=== PATIENT | female | born 1955 | race Asian ===

== ENCOUNTER 2016-06-20 10:44 | Inpatient (IN) | payer MEDICAID ==
[~2016-06-20] VITALS: Ht 152.4 cm; Wt 55.9 kg
[~2016-06-20 10:44] MED LIST: ACETAMINOP160 MG/54 ORAL; ASPIRIN81 MG ORAL; ATORVASTATIN CA20 MG ORAL; CALCIUM 500 +1 EAC6 PO; CARVEDILOL6.25 MG ORAL; COLACE100 MG ORAL; DULCOLAX10 MG RC; FUROSEMIDE40 MG ORAL; LISINOPRIL5 MG ORAL; NAMENDA10 MG ORAL; SENNA LAXATIVE1 EAC1 PO; SEROQUEL25 MG ORAL; SPIRONOLACTONE25 MG ORAL; VITAMIN B-1100 MG ORAL
--- NOTE | 2016-06-20 10:52 | Emergency Room Report ---
History of Present Illness General Chief Complaint: Abdominal Pain Source: Medical Record Present Illness HPI Patient sent in from nursing facility with reports of shortness of breath and increased Abdominal distention Patient has history of liver disease with ascites Patient herself is somewhat of a poor historian History of present illness remains limited No reports of vomiting or diarrhea Unclear when the patient's last paracentesis was Allergies: Coded Allergies: No Known Allergies (Unverified , 01/02/16) Patient History Past Medical History: see triage record Pertinent Family History: none Reviewed Nursing Documentation: PMH: Agreed, PSxH: Agreed Nursing Documentation-PMH Hx Cardiac Problems: Yes Hx Hypertension: Yes Hx Pacemaker: No Hx Asthma: No Hx COPD: No Hx Diabetes: No Hx Cancer: No Hx Gastrointestinal Problems: Yes - acities Hx Dialysis: No History Of Psychiatric Problem: Yes Hx Neurological Problems: Yes - encephalopathy Hx Cerebrovascular Accident: No Hx Seizures: No Review of Systems All Other Systems: negative except mentioned in HPI Physical Exam Vital Signs Date Time Temp Pulse Resp B/P Pulse Ox O2 Delivery O2 Flow Rate FiO2 06/20/16 10:35 92 16 147/107 98 Room Air Sp02 EP Interpretation: reviewed, normal General Appearance: mild distress - Uncomfortable Head: normocephalic, atraumatic Eyes: bilateral eye EOMI, bilateral eye PERRL ENT: hearing grossly normal, normal pharynx, TMs + canals normal, uvula midline Neck: full range of motion, supple, no meningismus, no bony tend Respiratory: lungs clear, normal breath sounds, no rhonchi, no respiratory distress, no retraction, no accessory muscle use Cardiovascular #1: normal peripheral pulses, regular rate, rhythm, no gallop, no JVD, no murmur Gastrointestinal: no guarding, no hernia, no pulsatile mass, no rebound, other - Hepatomegaly with positive fluid shift, in line with ascites , Genitourinary: no CVA tenderness Musculoskeletal: normal inspection Neurologic: oriented x3, responsive, welfare eligibility worker III-XII nml as tested, sensory intact Psychiatric: mood/affect normal Skin: warm/dry, palpation normal Lymphatic: normal inspection, no adenopathy Medical Decision Making Diagnostic Impression: Primary Impression: End stage liver disease Additional Impressions: Ascites Dyspnea ER Course With the history exam and presentation, multiple differentials considered, including but not limited to appendicitis, gastritis, cholecystitis, diverticulitis sbp considered Patient has clinical signs of ascites I did make attempts of having the patient gets paracentesis At this time patient remains otherwise clinically appropriate Oxygenation was appropriate no signs of any retractions and will be a medicine further inpatient intervention Labs Test 06/20/16 10:55 White Blood Count 9.8 K/UL (4.8-10.8) Red Blood Count 4.70 M/UL (4.20-5.40) Hemoglobin 13.0 G/DL (12.0-16.0) Hematocrit 42.8 % (37.0-47.0) Mean Corpuscular Volume 91 FL (80-99) Mean Corpuscular Hemoglobin 27.7 PG (27.0-31.0) Mean Corpuscular Hemoglobin Concent 30.4 G/DL (32.0-36.0) Red Cell Distribution Width 18.4 % (11.6-14.8) Platelet Count 284 K/UL (150-450) Mean Platelet Volume 6.5 FL (6.5-10.1) Neutrophils (%) (Auto) 82.8 % (45.0-75.0) Lymphocytes (%) (Auto) 10.0 % (20.0-45.0) Monocytes (%) (Auto) 5.5 % (1.0-10.0) Eosinophils (%) (Auto) 0.6 % (0.0-3.0) Basophils (%) (Auto) 1.0 % (0.0-2.0) Prothrombin Time 12.0 SEC (9.30-11.50) Prothromb Time International Ratio 1.2 (0.9-1.1) Activated Partial Thromboplast Time 26 SEC (23-33) Sodium Level 128 mEQ/L (135-145) Potassium Level 4.8 mEQ/L (3.4-4.9) Chloride Level 93 mEQ/L (98-107) Carbon Dioxide Level 20 mEQ/L (20-30) Anion Gap 15 (5-15) Blood Urea Nitrogen 20 mg/dL (7-23) Creatinine 0.9 mg/dL (0.5-0.9) Estimat Glomerular Filtration Rate > 60 mL/min (>60) Glucose Level 110 mg/dL (74-106) Calcium Level 8.1 mg/dL (8.6-10.2) Total Bilirubin 1.3 mg/dL (0.0-1.2) Direct Bilirubin 0.6 mg/dL (0.1-0.3) Aspartate Amino Transf (AST/SGOT) 32 U/L (5-40) Alanine Aminotransferase (ALT/SGPT) 16 U/L (3-33) Alkaline Phosphatase 119 U/L (35-104) Total Creatine Kinase 152 U/L (26-140) Creatine Kinase MB 5.6 ng/mL (< 3.8) Creatine Kinase MB Relative Index 3.6 Troponin I < 0.30 ng/mL (<=0.30) Total Protein 6.3 g/dL (6.6-8.7) Albumin 2.6 g/dL (3.5-5.2) Globulin 3.7 g/dL Albumin/Globulin Ratio 0.7 (1.0-2.7) Lipase 23 U/L (< 60) Rhythm Strip Diag. Results EP Interpretation: yes Rate: 67 Rhythm: NSR, no PVC's, no ectopy Chest X-Ray Diagnostic Results EP Interpretation: Yes Findings: no pneumothorax, other - Bilateral pleural effusion, cardiomegaly Number of Views: 1 Last Vital Signs Date Time Temp Pulse Resp B/P Pulse Ox O2 Delivery O2 Flow Rate FiO2 06/20/16 10:35 92 16 147/107 98 Room Air Status: improved Disposition: ADMITTED INPATIENT Condition: Serious KELLEY HUNTER D.O. Jun 20, 2016 10:52
[2016-06-20] MEDS ORDERED: LEVOTHYROXINE50 MCG ORAL (10:53)
[2016-06-20] MEDS ORDERED: DONEPEZIL HCL10 M2 ORAL (10:53)
[2016-06-20] MEDS ORDERED: HEPARIN SO5000 UNIT2 SUBQ (10:53)
[2016-06-20] MEDS ORDERED: LACTULOSE20 GM/301 ORAL (10:53)
[2016-06-20 10:58] VITALS: BP 151/101
[2016-06-20 11:14] LABS: EOSINOPHILS % (AUTO) 0.6 % (0.0-3.0); MEAN CORPUSCULAR HEMOGLOBIN 27.7 PG (27.0-31.0); MEAN CORPUSCULAR HGB CONC 30.4 G/DL (32.0-36.0); MEAN CORPUSCULAR VOLUME 91 FL (80-99); MEAN PLATELET VOLUME 6.5 FL (6.5-10.1); MONOCYTES % (AUTO) 5.5 % (1.0-10.0); NEUTROPHILS % (AUTO) 82.8 % (45.0-75.0); PLATELET COUNT 284 K/UL (150-450); RED CELL DISTRIBUTION WIDTH 18.4 % (11.6-14.8); WHITE BLOOD COUNT 9.8 K/UL (4.8-10.8)
[2016-06-20 11:25] LABS: INR 1.2 (0.9-1.1)
[2016-06-20 11:29] LABS: ALANINE AMINOTRANSFERASE 16 U/L (3-33); ALBUMIN/GLOBULIN RATIO 0.7 (1.0-2.7); ANION GAP 15 (5-15); ASPARTATE AMINO TRANSFERASE 32 U/L (5-40); CALCIUM 8.1 mg/dL (8.6-10.2); CARBON DIOXIDE 20 mEQ/L (20-30); CHLORIDE 93 mEQ/L (98-107); CREATININE 0.9 mg/dL (0.5-0.9); GLOMERULAR FILTRATION RATE > 60 mL/min (>60); HEMOLYSIS 48; LIPASE 23 U/L (< 60); POTASSIUM 4.8 mEQ/L (3.4-4.9); SODIUM 128 mEQ/L (135-145); TOTAL PROTEIN 6.3 g/dL (6.6-8.7); TROPONIN I < 0.30 ng/mL (<=0.30)
--- NOTE | 2016-06-20 11:34 | Diagnostic Imaging Report ---
Indications: Shortness of breath Technique: Portable AP chest Findings: Comparison: 01/03/2016 Cardiomegaly, pulmonary vascular redistribution, bilateral interstitial infiltrates, bibasal pleural effusions are again noted. Latter appear mildly larger than on previous exam; remaining changes not significant changed. Circumscribed lucency left upper lobe unchanged. IMPRESSION: Bilateral congestive changes, persistent versus recurrent since previous exam, with interval mild increase in bilateral pleural effusions Bullae versus bleb left upper lobe.
[2016-06-20 11:39] LABS: CKMB 5.6 ng/mL (< 3.8)
[2016-06-20 11:50] LABS: BILIRUBIN,DIRECT 0.6 mg/dL (0.1-0.3)
[2016-06-20 12:38] VITALS: BP 149/111
[2016-06-20 15:10] VITALS: BP 140/104
[2016-06-20] MEDS ORDERED: Mylanta II UD 30ml ORAL PRN (18:00)
[2016-06-20] MEDS ORDERED: Nitroglycerin Subl 0.4mg tab (Bottle Of 25) SL PRN (18:00)
[2016-06-20] MEDS ORDERED: D5 1/2NS 1,000 ML IV SCH (18:00)
[2016-06-20] MEDS ORDERED: Morphine Sulfate 2mg/ml Inj IVP PRN (18:00)
[2016-06-20] MEDS ORDERED: Phytonadione 10 MG in D5W 55 ML IVPB ONE (19:00)
[2016-06-20 20:00] VITALS: BP 152/77
[2016-06-20] MEDS ORDERED: Miralax 17gm pkt ORAL PRN (21:00)
[2016-06-20] MEDS: Lactulose 20gm/30ml UDC ORAL SCH (22:00)
[2016-06-21] VITALS: BP 142/92
[2016-06-21 04:00] VITALS: BP 137/90
[2016-06-21] MEDS: Lactulose 20gm/30ml UDC ORAL SCH ×3 (06:38→21:06)
[2016-06-21 07:14] LABS: BASOPHILS % (AUTO) 1.1 % (0.0-2.0); EOSINOPHILS % (AUTO) 0.7 % (0.0-3.0); LYMPHOCYTES % (AUTO) 9.4 % (20.0-45.0); MEAN CORPUSCULAR HEMOGLOBIN 28.3 PG (27.0-31.0); MEAN CORPUSCULAR HGB CONC 31.2 G/DL (32.0-36.0); MEAN CORPUSCULAR VOLUME 91 FL (80-99); MEAN PLATELET VOLUME 6.2 FL (6.5-10.1); MONOCYTES % (AUTO) 7.4 % (1.0-10.0); NEUTROPHILS % (AUTO) 81.5 % (45.0-75.0); PLATELET COUNT 253 K/UL (150-450); RED BLOOD COUNT 4.88 M/UL (4.20-5.40); RED CELL DISTRIBUTION WIDTH 18.2 % (11.6-14.8); WHITE BLOOD COUNT 8.4 K/UL (4.8-10.8)
[2016-06-21 07:39] LABS: ALANINE AMINOTRANSFERASE 16 U/L (3-33); ALBUMIN/GLOBULIN RATIO 0.6 (1.0-2.7); ANION GAP 19 (5-15); ASPARTATE AMINO TRANSFERASE 29 U/L (5-40); CALCIUM 8.4 mg/dL (8.6-10.2); CARBON DIOXIDE 21 mEQ/L (20-30); CHLORIDE 93 mEQ/L (98-107); CREATININE 0.9 mg/dL (0.5-0.9); GLOMERULAR FILTRATION RATE > 60 mL/min (>60); HEMOLYSIS 5; POTASSIUM 3.8 mEQ/L (3.4-4.9); SODIUM 133 mEQ/L (135-145); TOTAL PROTEIN 5.9 g/dL (6.6-8.7)
[2016-06-21 08:00] LABS: BILIRUBIN,DIRECT 0.9 mg/dL (0.1-0.3)
[2016-06-21] MEDS: Furosemide 40mg tab ORAL SCH (08:41)
[2016-06-21] MEDS: Spironolactone 25mg tab ORAL SCH (08:41)
[2016-06-21 08:43] VITALS: BP 139/100
--- NOTE | 2016-06-21 11:11 | GI Initial Consult Note ---
History of Present Illness General Date patient seen: Jun 21, 2016 Time patient seen: 11:03 Reason for Hospitalization: Abdominal Pain Referring physician: CHANDANA COVARRUBIAS Reason for Consultation: ABDOMINAL DISTENTION Present Illness HPI Patient sent in from nursing facility with reports of shortness of breath and increased Abdominal distention Patient has history of liver disease with ascites Patient herself is somewhat of a poor historian History of present illness remains limited No reports of vomiting or diarrhea Unclear when the patient's last paracentesis was GI CONSULT: HPI as noted above. GI consulted for abdominal distention. Pt seen on floor, asleep but able wake with no s/sx of SOB or N/V. She presents today with distended abdomen presumably from history of liver cirrhosis and hypoalbuminemia. Unknown history of any endoscopic procedures. [place]ed [place] [facility] [place] Home Meds Reported Medications Levothyroxine Sodium* (LEVOTHYROXINE SODIUM*) 50 Mcg Tablet, 50 MCG ORAL DAILY, TAB Take in the morning on an empty stomach, at least 30 minutes before food. 06/20/16 Lactulose (LACTULOSE*) 20 Gm/30 Ml Solution, 30 ML ORAL EVERY 8 HOURS, ML 0 Refills 06/20/16 Heparin Sod (Porcine) (HEPARIN SODIUM*) 5 000/1 Ml Vial, 5000 UNITS SUBQ BID, VIAL 06/20/16 Donepezil Hcl* (DONEPEZIL HCL*) 10 Mg Tab.rapdis, 10 MG ORAL DAILY, TAB 06/20/16 Thiamine Hcl* (VITAMIN B-1*) 100 Mg Tablet, 100 MG ORAL DAILY, #30 TAB 0 Refills 01/02/16 Acetaminophen* (ACETAMINOPHEN*) 160 Mg/5 Ml Solution, 650 MG ORAL Q6H Y for Mild Pain/Temp > 100.5, ML 01/02/16 Quetiapine Fumarate* (SEROQUEL*) 25 Mg Tablet, 50 MG ORAL THREE TIMES A DAY, TAB 01/02/16 Sennosides/Docusate Sodium (SENNA LAXATIVE TABLET) 1 Each Tablet, 2 EACH PO BEDTIME, TAB 01/02/16 Memantine Hcl* (NAMENDA*) 10 Mg Tablet, 10 MG ORAL DAILY, TAB 01/02/16 Lisinopril (LISINOPRIL*) 5 Mg Tablet, 10 MG ORAL DAILY, TAB 01/02/16 Furosemide* (LASIX*) 40 Mg Tablet, 40 MG ORAL DAILY, TAB 01/02/16 Bisacodyl (DULCOLAX) 10 Mg Supp.rect, 10 MG RC, SUPP 01/02/16 Docusate Sodium* (COLACE*) 100 Mg Capsule, 100 MG ORAL DAILY, CAP 01/02/16 Carvedilol* (CARVEDILOL*) 6.25 Mg Tablet, 6.25 MG ORAL EVERY 12 HOURS, TAB 01/02/16 Calcium Carbonate/Vitamin D3 (CALCIUM 500 + VIT D 200 CAPLET) 1 Each Tablet, 1 EACH PO DAILY, TAB 01/02/16 Atorvastatin Calcium* (ATORVASTATIN CALCIUM*) 20 Mg Tablet, 20 MG ORAL BEDTIME, TAB 01/02/16 Aspirin* (ASPIRIN*) 81 Mg Tab.chew, 81 MG ORAL DAILY, TAB 01/02/16 Spironolactone* (ALDACTONE*) 25 Mg Tablet, 25 MG ORAL DAILY, TAB 01/02/16 Med list reviewed/reconciled: Yes Allergies: Coded Allergies: No Known Allergies (Unverified , 01/02/16) Patient History PMH Narrative Hx Cardiac Problems: Yes Hx Hypertension: Yes Hx Pacemaker: No Hx Asthma: No Hx COPD: No Hx Diabetes: No Hx Cancer: No Hx Gastrointestinal Problems: Yes - ascites Hx Dialysis: No History Of Psychiatric Problem: Yes Hx Neurological Problems: Yes - encephalopathy Hx Cerebrovascular Accident: No Hx Seizures: No Review of Systems All Other Systems: limited Physical Exam Vital Signs Date Time Temp Pulse Resp B/P Pulse Ox O2 Delivery O2 Flow Rate FiO2 06/20/16 10:35 92 16 147/107 98 Room Air 06/20/16 16:31 96.8 Sp02 EP Interpretation: reviewed Labs Laboratory Tests Test 06/21/16 04:50 White Blood Count 8.4 K/UL (4.8-10.8) Red Blood Count 4.88 M/UL (4.20-5.40) Hemoglobin 13.8 G/DL (12.0-16.0) Hematocrit 44.3 % (37.0-47.0) Mean Corpuscular Volume 91 FL (80-99) Mean Corpuscular Hemoglobin 28.3 PG (27.0-31.0) Mean Corpuscular Hemoglobin Concent 31.2 G/DL (32.0-36.0) L Red Cell Distribution Width 18.2 % (11.6-14.8) H Platelet Count 253 K/UL (150-450) Mean Platelet Volume 6.2 FL (6.5-10.1) L Neutrophils (%) (Auto) 81.5 % (45.0-75.0) H Lymphocytes (%) (Auto) 9.4 % (20.0-45.0) L Monocytes (%) (Auto) 7.4 % (1.0-10.0) Eosinophils (%) (Auto) 0.7 % (0.0-3.0) Basophils (%) (Auto) 1.1 % (0.0-2.0) Activated Partial Thromboplast Time 27 SEC (23-33) Sodium Level 133 mEQ/L (135-145) L Potassium Level 3.8 mEQ/L (3.4-4.9) Chloride Level 93 mEQ/L (98-107) L Carbon Dioxide Level 21 mEQ/L (20-30) Anion Gap 19 (5-15) H Blood Urea Nitrogen 20 mg/dL (7-23) Creatinine 0.9 mg/dL (0.5-0.9) Estimat Glomerular Filtration Rate > 60 mL/min (>60) Glucose Level 62 mg/dL (74-106) L Calcium Level 8.4 mg/dL (8.6-10.2) L Total Bilirubin 2.2 mg/dL (0.0-1.2) H Direct Bilirubin 0.9 mg/dL (0.1-0.3) H Aspartate Amino Transf (AST/SGOT) 29 U/L (5-40) Alanine Aminotransferase (ALT/SGPT) 16 U/L (3-33) Alkaline Phosphatase 118 U/L (35-104) H Total Protein 5.9 g/dL (6.6-8.7) L Albumin 2.3 g/dL (3.5-5.2) L Globulin 3.6 g/dL Albumin/Globulin Ratio 0.6 (1.0-2.7) L General Appearance: no apparent distress Head: normocephalic EENT: PERRL/EOMI, normal ENT inspection Neck: supple Respiratory: normal breath sounds, no respiratory distress Cardiovascular: normal rate Gastrointestinal: distended, ascites Rectal: deferred Neurologic: alert Skin: normal color, no rash Lymphatic: no adenopathy Current Medications Current Medications Medications (Trade) Dose Ordered Sig/Fela Route PRN Reason Start Time Stop Time Status Last Admin Dose Admin Acetaminophen (Tylenol) 650 mg Q4H PRN ORAL fever 06/20/16 18:00 07/20/16 17:59 Al Hydroxide/Mg Hydroxide (Mylanta II) 30 ml Q6H PRN ORAL dyspepsia 06/20/16 18:00 07/20/16 17:59 Dextrose (Dextrose 50%) STAT PRN IV Hypoglycemia 06/20/16 18:00 07/20/16 17:59 Diphenhydramine HCl (Benadryl) 25 mg Q6H PRN ORAL Itching/Pruritis 06/20/16 18:00 07/20/16 17:59 Furosemide (Lasix) 40 mg DAILY ORAL 06/21/16 09:00 07/21/16 08:59 06/21/16 08:41 Lactulose (Cephulac) 20 gm EVERY 8 HOURS ORAL 06/20/16 22:00 07/20/16 21:59 06/21/16 06:38 Levothyroxine Sodium (Synthroid) 50 mcg DAILY@0630 ORAL 06/21/16 06:30 07/21/16 06:29 06/21/16 06:42 Morphine Sulfate (Morphine Sulfate) 2 mg EVERY 4 HOURS PRN IVP Severe Pain (Pain Scale 7-10) 06/20/16 18:00 06/27/16 17:59 Nitroglycerin (Ntg) 0.4 mg Q5M X 3 DOSES PRN SL Prn Chest Pain 06/20/16 18:00 07/20/16 17:59 Ondansetron HCl (Zofran) 4 mg Q6H PRN IVP Nausea & Vomiting 06/20/16 18:00 07/20/16 17:59 Polyethylene Glycol (Miralax) 17 gm HSPRN PRN ORAL Constipation 06/20/16 21:00 07/20/16 20:59 Quetiapine Fumarate (SEROquel) 50 mg THREE TIMES A DAY ORAL 06/20/16 18:00 07/20/16 17:59 06/21/16 08:41 Spironolactone (Aldactone) 25 mg DAILY ORAL 06/21/16 09:00 07/21/16 08:59 06/21/16 08:41 Temazepam (Restoril) 15 mg HSPRN PRN ORAL Insomnia 06/20/16 21:00 06/27/16 20:59 GI: Plan Problems: (1) Ascites (2) End stage liver disease (3) Elevated CEA (4) Anemia (5) Iron deficiency (6) CHF (congestive heart failure) (7) Dementia Plan fu abdominal U/S and paracentesis >> r/o SBP lactulose low sodium diet GI prophylaxis, H2 ordered iron panel given hx of iron deficiency fu ammonia levels fu labs Discussed with Dr. Kiser. Thank you for referring this patient, we will follow. Greta David N.P. Jun 21, 2016 11:11
[2016-06-21 12:00] VITALS: BP 119/78
--- NOTE | 2016-06-21 14:26 | Diagnostic Imaging Report ---
APPROVED REPORT CPT Code: 87533 Present Symptoms Lower Extremity Edema: Bilateral Comments: R/O DVT BILATERAL: Imaging reveals a patent deep venous system bilaterally. There is no evidence of thrombus within the femoral, popliteal or tibial segments. The greater saphenous veins are also within normal limits. Doppler indicates normal spontaneous flow within these segments.
[2016-06-21 16:00] VITALS: BP 126/92
--- NOTE | 2016-06-21 16:26 | Cardiac Electrophysiology PN ---
Subjective Subjective [id number] Objective Last 24 Hour Vital Signs Date Time Temp Pulse Resp B/P Pulse Ox O2 Delivery O2 Flow Rate FiO2 06/21/16 12:00 97.7 91 22 119/78 96 Room Air 06/21/16 08:43 97.2 90 19 139/100 99 Room Air 06/21/16 04:00 97.8 87 20 137/90 96 Room Air 06/21/16 00:00 97.7 98 21 142/92 98 Room Air 06/20/16 20:00 97.4 72 20 152/77 95 Room Air 06/20/16 16:31 96.8 99 20 96 Room Air Intake and Output 06/20/16 06/21/16 19:00 07:00 Intake Total 0 ml Balance 0 ml Intake Oral 0 ml # Voids 3 Laboratory Tests Test 06/21/16 04:50 White Blood Count 8.4 K/UL (4.8-10.8) Red Blood Count 4.88 M/UL (4.20-5.40) Hemoglobin 13.8 G/DL (12.0-16.0) Hematocrit 44.3 % (37.0-47.0) Mean Corpuscular Volume 91 FL (80-99) Mean Corpuscular Hemoglobin 28.3 PG (27.0-31.0) Mean Corpuscular Hemoglobin Concent 31.2 G/DL (32.0-36.0) L Red Cell Distribution Width 18.2 % (11.6-14.8) H Platelet Count 253 K/UL (150-450) Mean Platelet Volume 6.2 FL (6.5-10.1) L Neutrophils (%) (Auto) 81.5 % (45.0-75.0) H Lymphocytes (%) (Auto) 9.4 % (20.0-45.0) L Monocytes (%) (Auto) 7.4 % (1.0-10.0) Eosinophils (%) (Auto) 0.7 % (0.0-3.0) Basophils (%) (Auto) 1.1 % (0.0-2.0) Activated Partial Thromboplast Time 27 SEC (23-33) Sodium Level 133 mEQ/L (135-145) L Potassium Level 3.8 mEQ/L (3.4-4.9) Chloride Level 93 mEQ/L (98-107) L Carbon Dioxide Level 21 mEQ/L (20-30) Anion Gap 19 (5-15) H Blood Urea Nitrogen 20 mg/dL (7-23) Creatinine 0.9 mg/dL (0.5-0.9) Estimat Glomerular Filtration Rate > 60 mL/min (>60) Glucose Level 62 mg/dL (74-106) L Calcium Level 8.4 mg/dL (8.6-10.2) L Total Bilirubin 2.2 mg/dL (0.0-1.2) H Direct Bilirubin 0.9 mg/dL (0.1-0.3) H Aspartate Amino Transf (AST/SGOT) 29 U/L (5-40) Alanine Aminotransferase (ALT/SGPT) 16 U/L (3-33) Alkaline Phosphatase 118 U/L (35-104) H Total Protein 5.9 g/dL (6.6-8.7) L Albumin 2.3 g/dL (3.5-5.2) L Globulin 3.6 g/dL Albumin/Globulin Ratio 0.6 (1.0-2.7) L GARETH KAPOOR Jun 21, 2016 16:26
--- NOTE | 2016-06-21 16:48 | History and Physical Report ---
DATE OF ADMISSION: 06/20/2016 TIME: 12 noon. CONSULTANTS: 1. Stephane Kiser M.D. 2. Tiffany Tabares M.D. 3. Tino Fernando M.D. CHIEF COMPLAINT: Ascites, short of breath. BRIEF HISTORY: This is a 60-year-old female from [facility] presented with increasing shortness of breath, ascites, edema, admitted to medical floor for further treatment. Currently, sleeping in bed. No complaints. PAST MEDICAL HISTORY: Hypertension, CKD, CHF, encephalopathy, and liver disease. PAST SURGICAL HISTORY: Unknown. MEDICATIONS: Lasix, Aldactone, Synthroid, , MiraLAX, Restoril, Seroquel, Tylenol, morphine, Zofran, Benadryl, Mylanta, and nitroglycerin. ALLERGIES: Denies. SOCIAL HISTORY: No smoking. No alcohol. No intravenous drug abuse. FAMILY HISTORY: Noncontributory. REVIEW OF SYSTEMS: Unavailable, the patient is very confused. PHYSICAL EXAMINATION: GENERAL: The patient is lethargic in bed, refuses to answer questions. VITAL SIGNS: Temperature is 97 degrees, pulse 90, respiratory rate 19, and blood pressure 139/100. HEENT: Eyes, nonicteric. CARDIOVASCULAR: No murmurs. LUNGS: Poor air exchange. ABDOMEN: Bowel sound positive. Nontender and nondistended. EXTREMITIES: No cyanosis or clubbing. There is 1+ edema. NEUROLOGIC: The patient moves all extremities. Does not want to follow commands. LABORATORY AND DIAGNOSTIC DATA: CBC is normal. BMP shows sodium 133, chloride 93, BUN and creatinine 20/0.9 and glucose 62. INR is 1.2. ASSESSMENT: 1. Ascites. 2. Shortness of breath. 3. Encephalopathy. 4. Congestive heart failure. 5. Hypertension. 6. Renal insufficiency. 7. Edema. 8. Liver disease. PLAN: Continue pre-medications. O2 and pulmonary toilet as needed. Nephrology to follow. GI to follow. Psychiatric treatment with Dr. Fernando. We will continue to follow this patient. CBC and BMP in the morning. OT/PT. Dietary evaluation. Jac Garcia D.O. DR: TOYIN JOB#: [id number] CC:
[2016-06-21] MEDS: DuoNeb 0.5-3(2.5)mg/3ml neb HHN SCH ×2 (19:00→23:00)
--- NOTE | 2016-06-21 19:18 | Consultation ---
History of Present Illness General Date patient seen: Jun 21, 2016 Chief Complaint: Abdominal Pain Referring physician: CHANDANA COVARRUBIAS Reason for Consultation: ABDOMINAL DISTENTION Present Illness HPI 60 year old female with hx of cirrhosis, ascites sent in from nursing facility with reports of shortness of breath and increased abdominal distention No reports of vomiting or diarrhea. pt is a poor historian. Doesn't give any more information Allergies: Coded Allergies: No Known Allergies (Unverified , 01/02/16) Medication History Scheduled Aspirin* (Aspirin*), 81 MG ORAL DAILY, (Reported) Atorvastatin Calcium* (Atorvastatin Calcium*), 20 MG ORAL BEDTIME, (Reported) Calcium Carbonate/Vitamin D3 (Calcium 500 + Vit D 200 Caplet), 1 EACH PO DAILY, (Reported) Carvedilol* (Carvedilol*), 6.25 MG ORAL EVERY 12 HOURS, (Reported) Docusate Sodium* (Colace*), 100 MG ORAL DAILY, (Reported) Donepezil Hcl* (Donepezil Hcl*), 10 MG ORAL DAILY, (Reported) Furosemide* (Lasix*), 40 MG ORAL DAILY, (Reported) Heparin Sod (Porcine) (Heparin Sodium*), 5,000 UNITS SUBQ BID, (Reported) Lactulose (Lactulose*), 30 ML ORAL EVERY 8 HOURS, (Reported) Levothyroxine Sodium* (Levothyroxine Sodium*), 50 MCG ORAL DAILY, (Reported) Lisinopril (Lisinopril*), 10 MG ORAL DAILY, (Reported) Memantine Hcl* (Namenda*), 10 MG ORAL DAILY, (Reported) Quetiapine Fumarate* (Seroquel*), 50 MG ORAL THREE TIMES A DAY, (Reported) Sennosides/Docusate Sodium (Senna Laxative Tablet), 2 EACH PO BEDTIME, (Reported ) Spironolactone* (Aldactone*), 25 MG ORAL DAILY, (Reported) Thiamine Hcl* (Vitamin B-1*), 100 MG ORAL DAILY, (Reported) Scheduled PRN Acetaminophen* (Acetaminophen*), 650 MG ORAL Q6H PRN for Mild Pain/Temp > 100.5, (Reported) Miscellaneous Medications Bisacodyl (Dulcolax), 10 MG RC, (Reported) Patient History Healthcare decision maker oriented x2 Resuscitation status Advanced Directive on File Past Medical/Surgical History Past Medical/Surgical History: (1) End stage liver disease (2) Ascites (3) Elevated CEA (4) CKD (chronic kidney disease) Review of Systems All Other Systems: negative except mentioned in HPI Physical Exam General Appearance: cachetic Lines, tubes and drains: peripheral, central line HEENT: normocephalic, atraumatic Neck: non-tender, normal alignment Respiratory/Chest: chest wall non-tender, lungs clear Cardiovascular/Chest: normal peripheral pulses, normal rate Abdomen: normal bowel sounds Genitourinary/Rectal: normal genital exam Extremities: normal range of motion Skin Exam: normal pigmentation Last 24 Hour Vital Signs Date Time Temp Pulse Resp B/P Pulse Ox O2 Delivery O2 Flow Rate FiO2 06/21/16 16:00 97.2 96 21 126/92 100 Room Air 06/21/16 12:00 97.7 91 22 119/78 96 Room Air 06/21/16 08:43 97.2 90 19 139/100 99 Room Air 06/21/16 04:00 97.8 87 20 137/90 96 Room Air 06/21/16 00:00 97.7 98 21 142/92 98 Room Air 06/20/16 20:00 97.4 72 20 152/77 95 Room Air Intake and Output 06/20/16 06/21/16 19:00 07:00 Intake Total 0 ml Balance 0 ml Intake Oral 0 ml # Voids 3 Laboratory Tests Test 06/21/16 04:50 White Blood Count 8.4 K/UL (4.8-10.8) Red Blood Count 4.88 M/UL (4.20-5.40) Hemoglobin 13.8 G/DL (12.0-16.0) Hematocrit 44.3 % (37.0-47.0) Mean Corpuscular Volume 91 FL (80-99) Mean Corpuscular Hemoglobin 28.3 PG (27.0-31.0) Mean Corpuscular Hemoglobin Concent 31.2 G/DL (32.0-36.0) L Red Cell Distribution Width 18.2 % (11.6-14.8) H Platelet Count 253 K/UL (150-450) Mean Platelet Volume 6.2 FL (6.5-10.1) L Neutrophils (%) (Auto) 81.5 % (45.0-75.0) H Lymphocytes (%) (Auto) 9.4 % (20.0-45.0) L Monocytes (%) (Auto) 7.4 % (1.0-10.0) Eosinophils (%) (Auto) 0.7 % (0.0-3.0) Basophils (%) (Auto) 1.1 % (0.0-2.0) Activated Partial Thromboplast Time 27 SEC (23-33) Sodium Level 133 mEQ/L (135-145) L Potassium Level 3.8 mEQ/L (3.4-4.9) Chloride Level 93 mEQ/L (98-107) L Carbon Dioxide Level 21 mEQ/L (20-30) Anion Gap 19 (5-15) H Blood Urea Nitrogen 20 mg/dL (7-23) Creatinine 0.9 mg/dL (0.5-0.9) Estimat Glomerular Filtration Rate > 60 mL/min (>60) Glucose Level 62 mg/dL (74-106) L Calcium Level 8.4 mg/dL (8.6-10.2) L Total Bilirubin 2.2 mg/dL (0.0-1.2) H Direct Bilirubin 0.9 mg/dL (0.1-0.3) H Aspartate Amino Transf (AST/SGOT) 29 U/L (5-40) Alanine Aminotransferase (ALT/SGPT) 16 U/L (3-33) Alkaline Phosphatase 118 U/L (35-104) H Total Protein 5.9 g/dL (6.6-8.7) L Albumin 2.3 g/dL (3.5-5.2) L Globulin 3.6 g/dL Albumin/Globulin Ratio 0.6 (1.0-2.7) L Height (Feet): 5 Weight (Pounds): 115 Medications Current Medications Medications (Trade) Dose Ordered Sig/Fela Route PRN Reason Start Time Stop Time Status Last Admin Dose Admin Acetaminophen (Tylenol) 650 mg Q4H PRN ORAL fever 06/20/16 18:00 07/20/16 17:59 Al Hydroxide/Mg Hydroxide (Mylanta II) 30 ml Q6H PRN ORAL dyspepsia 06/20/16 18:00 07/20/16 17:59 Albuterol/ Ipratropium (DuoNeb 0.5-3(2.5)mg/3ml) 3 ml Q4HRT HHN 06/21/16 19:00 06/26/16 18:59 Carvedilol (Coreg) 3.125 mg EVERY 12 HOURS ORAL 06/21/16 21:00 07/21/16 20:59 Dextrose (Dextrose 50%) STAT PRN IV Hypoglycemia 06/20/16 18:00 07/20/16 17:59 Diphenhydramine HCl (Benadryl) 25 mg Q6H PRN ORAL Itching/Pruritis 06/20/16 18:00 07/20/16 17:59 Furosemide (Lasix) 40 mg DAILY ORAL 06/21/16 09:00 07/21/16 08:59 06/21/16 08:41 Guaifenesin (Robitussin) 100 mg Q4H PRN ORAL For Cough 06/21/16 17:00 07/21/16 16:59 Lactulose (Cephulac) 20 gm EVERY 8 HOURS ORAL 06/20/16 22:00 07/20/16 21:59 06/21/16 13:19 Levothyroxine Sodium (Synthroid) 50 mcg DAILY@0630 ORAL 06/21/16 06:30 07/21/16 06:29 06/21/16 06:42 Lisinopril (Zestril) 10 mg DAILY ORAL 06/22/16 09:00 07/22/16 08:59 Morphine Sulfate (Morphine Sulfate) 2 mg EVERY 4 HOURS PRN IVP Severe Pain (Pain Scale 7-10) 06/20/16 18:00 06/27/16 17:59 Nitroglycerin (Ntg) 0.4 mg Q5M X 3 DOSES PRN SL Prn Chest Pain 06/20/16 18:00 07/20/16 17:59 Ondansetron HCl (Zofran) 4 mg Q6H PRN IVP Nausea & Vomiting 06/20/16 18:00 07/20/16 17:59 Polyethylene Glycol (Miralax) 17 gm HSPRN PRN ORAL Constipation 06/20/16 21:00 07/20/16 20:59 Quetiapine Fumarate (SEROquel) 50 mg THREE TIMES A DAY ORAL 06/20/16 18:00 07/20/16 17:59 06/21/16 16:56 Spironolactone (Aldactone) 25 mg DAILY ORAL 06/21/16 09:00 07/21/16 08:59 06/21/16 08:41 Temazepam (Restoril) 15 mg HSPRN PRN ORAL Insomnia 06/20/16 21:00 06/27/16 20:59 Assessment/Plan Problem List: (1) Ascites ICD Codes: R18.8 - Other ascites SNOMED: 788712624 (2) End stage liver disease ICD Codes: K72.90 - Hepatic failure, unspecified without coma SNOMED: 209925361 (3) CKD (chronic kidney disease) ICD Codes: N18.9 - Chronic kidney disease, unspecified SNOMED: 967848295 (4) Elevated CEA ICD Codes: R97.0 - Elevated carcinoembryonic antigen [CEA] SNOMED: 85099940, 304169978 Assessment/Plan paracenthesis GI evaluation correct coagulopathy GLEN SAMAYOA Jun 21, 2016 19:18
[2016-06-21 20:36] VITALS: BP 128/77
--- NOTE | 2016-06-21 20:59 | Consultation ---
DATE OF CONSULTATION: 06/20/2016 CARDIOLOGY CONSULTATION REFERRING PHYSICIAN: Jac Garcia D.O. REASON FOR CONSULTATION: Management of hypertension and congestive heart failure HISTORY OF PRESENT ILLNESS: The patient is a 60-year-old lady with history of hypertension, hypothyroidism, history of congestive heart failure, and hyperlipidemia who was brought from [facility] for shortness of breath and increased abdominal distention. The patient also has history of ascites and chronic liver disease. The patient is a very poor historian and has not been very compliant with medication. The patient was admitted and was evaluated by Dr. Kiser. Last paracentesis was at [facility] in December 2015. This patient also has dementia. At the time of my evaluation, the nurse at the bedside, currently comfortable. REVIEW OF SYSTEMS: Negative other than what was mentioned in history of present illness. PAST MEDICAL HISTORY: 1. Hypertension. 2. Congestive heart failure. 3. Cirrhosis of the liver. 4. History of ascites. MEDICATIONS: At [facility] include, Synthroid, lactulose, thiamine, Seroquel, Namenda, lisinopril, Lasix, Coreg, Lipitor, Aldactone. SOCIAL HISTORY: He lives in [facility]. PHYSICAL EXAMINATION: VITAL SIGNS: Blood pressure is 119/78, pulse 91, respirations 20, and temperature 97.7. HEAD AND NECK: Showed positive JVD. LUNGS: Decreased breath sounds. CARDIOVASCULAR: Shows regular S1 and S2 with no gallop or murmur. ABDOMEN: Soft. There is ascites. EXTREMITIES: A 1+ pitting edema. LABORATORY DATA: Show white count 8.4, hemoglobin of 13, hematocrit of 44.7, platelet count 253,000. Sodium 133, potassium 3.8, BUN of 20, creatinine 0.9, glucose 62. Troponin is negative. ASSESSMENT: 1. History of congestive heart failure. The patient already on current heart failure medication including Lasix 40 mg daily, Aldactone 25 mg daily. I will resume the patient's lisinopril as well. Coreg will also be resumed. 2. Hypertension. Continue current heart failure medications. 3. History of ascites. The patient underwent paracentesis in the past, and will be soon going for another one. 4. History of hyponatremia secondary to volume depletion secondary to ascites and cirrhosis. Thank you very much, Dr. Garcia, for allowing me to participate in the care of this patient. Please do not hesitate to contact for any questions regarding my evaluation. Rafael Fletcher M.D. DR: Radha JOB#: [id number] CC:
[2016-06-22] VITALS (8 sets, daily range): BP systolic 94–154; BP diastolic 61–91
[2016-06-22] MEDS: DuoNeb 0.5-3(2.5)mg/3ml neb HHN SCH ×6 (03:00→23:00)
[2016-06-22] MEDS: guaiFENesin 100mg/5ml Liq ud ORAL PRN (05:23)
[2016-06-22] MEDS: Lactulose 20gm/30ml UDC ORAL SCH ×3 (05:57→22:29)
[2016-06-22 07:11] LABS: AMMONIA 48 umol/L (11-51); HEMOLYSIS 3; IRON 26 ug/dL (37-145); TOTAL IRON BINDING CAPACITY 282 ug/dL (250-400)
[2016-06-22 07:15] LABS: ANION GAP 13 (5-15); CALCIUM 7.9 mg/dL (8.6-10.2); CARBON DIOXIDE 26 mEQ/L (20-30); CHLORIDE 101 mEQ/L (98-107); CREATININE 0.9 mg/dL (0.5-0.9); GLOMERULAR FILTRATION RATE > 60 mL/min (>60); POTASSIUM 3.3 mEQ/L (3.4-4.9); SODIUM 140 mEQ/L (135-145)
[2016-06-22 07:22] LABS: BASOPHILS % (AUTO) 1.1 % (0.0-2.0); EOSINOPHILS % (AUTO) 3.4 % (0.0-3.0); LYMPHOCYTES % (AUTO) 12.7 % (20.0-45.0); MEAN CORPUSCULAR HEMOGLOBIN 27.8 PG (27.0-31.0); MEAN CORPUSCULAR HGB CONC 30.8 G/DL (32.0-36.0); MEAN CORPUSCULAR VOLUME 90 FL (80-99); MEAN PLATELET VOLUME 5.8 FL (6.5-10.1); MONOCYTES % (AUTO) 8.3 % (1.0-10.0); NEUTROPHILS % (AUTO) 74.4 % (45.0-75.0); PLATELET COUNT 179 K/UL (150-450); RED BLOOD COUNT 4.21 M/UL (4.20-5.40); RED CELL DISTRIBUTION WIDTH 17.8 % (11.6-14.8); WHITE BLOOD COUNT 5.6 K/UL (4.8-10.8)
[2016-06-22] MEDS: Spironolactone 25mg tab ORAL SCH ×2 (08:23→08:35)
[2016-06-22] MEDS: Lisinopril 10mg tab ORAL SCH ×2 (08:23→08:35)
[2016-06-22] MEDS: Furosemide 40mg tab ORAL SCH ×2 (08:24→08:35)
--- NOTE | 2016-06-22 09:49 | GI Progress Note ---
Assessment/Plan Problems: (1) End stage liver disease ICD Codes: K72.90 - Hepatic failure, unspecified without coma SNOMED: 154196781 (2) Ascites ICD Codes: R18.8 - Other ascites SNOMED: 959338635 (3) Elevated CEA ICD Codes: R97.0 - Elevated carcinoembryonic antigen [CEA] SNOMED: 09562705, 956487322 (4) Dementia ICD Codes: F03.90 - Unspecified dementia without behavioral disturbance SNOMED: 52661140 (5) Anemia ICD Codes: D64.9 - Anemia, unspecified SNOMED: 011764424 (6) Iron deficiency ICD Codes: E61.1 - Iron deficiency SNOMED: 27376406 Status: unchanged Status Narrative Discussed with Dr. Kiser. Assessment/Plan fu abdominal U/S and paracentesis >> r/o SBP >> refused iron deficient >> venofer ammonia levels, WNL >> cont lactulose + Xifaxan low sodium diet GI prophylaxis, H2 fu AFP fu labs Subjective Subjective refusing care Objective Last 24 Hour Vital Signs Date Time Temp Pulse Resp B/P Pulse Ox O2 Delivery O2 Flow Rate FiO2 06/22/16 08:35 117/84 06/22/16 08:35 84 117/84 06/22/16 07:59 84 20 100 Room Air 06/22/16 07:50 82 18 96 Room Air 06/22/16 07:50 82 18 Room Air 06/22/16 04:00 97.9 87 18 117/84 94 Room Air 06/22/16 03:13 20 Room Air 06/22/16 03:11 Room Air 06/22/16 00:00 97.8 86 18 94/61 96 Room Air 06/21/16 23:47 20 Room Air 06/21/16 23:47 Room Air 06/21/16 21:06 100 128/77 06/21/16 20:36 97.9 100 18 128/77 97 Room Air 06/21/16 16:00 97.2 96 21 126/92 100 Room Air 06/21/16 12:00 97.7 91 22 119/78 96 Room Air Intake and Output 06/21/16 06/22/16 19:00 07:00 Intake Total 300 ml Balance 300 ml Intake Oral 300 ml # Voids 3 8 Laboratory Tests Test 06/22/16 04:50 White Blood Count 5.6 K/UL (4.8-10.8) Red Blood Count 4.21 M/UL (4.20-5.40) Hemoglobin 11.7 G/DL (12.0-16.0) L Hematocrit 38.0 % (37.0-47.0) Mean Corpuscular Volume 90 FL (80-99) Mean Corpuscular Hemoglobin 27.8 PG (27.0-31.0) Mean Corpuscular Hemoglobin Concent 30.8 G/DL (32.0-36.0) L Red Cell Distribution Width 17.8 % (11.6-14.8) H Platelet Count 179 K/UL (150-450) Mean Platelet Volume 5.8 FL (6.5-10.1) L Neutrophils (%) (Auto) 74.4 % (45.0-75.0) Lymphocytes (%) (Auto) 12.7 % (20.0-45.0) L Monocytes (%) (Auto) 8.3 % (1.0-10.0) Eosinophils (%) (Auto) 3.4 % (0.0-3.0) H Basophils (%) (Auto) 1.1 % (0.0-2.0) Sodium Level 140 mEQ/L (135-145) Potassium Level 3.3 mEQ/L (3.4-4.9) L Chloride Level 101 mEQ/L (98-107) Carbon Dioxide Level 26 mEQ/L (20-30) Anion Gap 13 (5-15) Blood Urea Nitrogen 18 mg/dL (7-23) Creatinine 0.9 mg/dL (0.5-0.9) Estimat Glomerular Filtration Rate > 60 mL/min (>60) Glucose Level 100 mg/dL (74-106) Calcium Level 7.9 mg/dL (8.6-10.2) L Iron Level 26 ug/dL (37-145) L Total Iron Binding Capacity 282 ug/dL (250-400) Percent Iron Saturation 9 % (15-50) L Unsaturated Iron Binding 256 ug/dL (112-346) Ammonia 48 umol/L (11-51) Alpha Fetoprotein Pending Hepatitis A IgM Antibody Pending Hepatitis B Surface Antigen Pending Hepatitis B Core IgM Antibody Pending Hepatitis C Antibody Pending Height (Feet): 5 Weight (Pounds): 125 General Appearance: no apparent distress, confused Cardiovascular: normal rate Respiratory/Chest: normal breath sounds, no respiratory distress Abdominal Exam: non tender, distended, ascites Greta David N.P. Jun 22, 2016 09:49
[2016-06-22] MEDS: LORazepam Inj 2mg/ml 1ml IM PRN (12:40)
--- NOTE | 2016-06-22 13:15 | General Progress Note ---
Assessment/Plan Problem List: (1) HTN (hypertension) ICD Codes: I10 - Essential (primary) hypertension SNOMED: 18734494 (2) Dementia ICD Codes: F03.90 - Unspecified dementia without behavioral disturbance SNOMED: 40902898 (3) CHF (congestive heart failure) ICD Codes: I50.9 - Heart failure, unspecified SNOMED: 92120370 (4) Ascites ICD Codes: R18.8 - Other ascites SNOMED: 325827740 (5) Dyspnea ICD Codes: R06.00 - Dyspnea, unspecified SNOMED: 283096674 (6) End stage liver disease ICD Codes: K72.90 - Hepatic failure, unspecified without coma SNOMED: 757417330 (7) CKD (chronic kidney disease) ICD Codes: N18.9 - Chronic kidney disease, unspecified SNOMED: 098170777 Status: stable, progressing, tolerating diet Assessment/Plan ot pt diet cbc bmp am possible pericentesis Subjective Constitutional: Reports: weakness Allergies: Coded Allergies: No Known Allergies (Unverified , 01/02/16) All Systems: reviewed and negative except above Subjective sitting calm Objective Last 24 Hour Vital Signs Date Time Temp Pulse Resp B/P Pulse Ox O2 Delivery O2 Flow Rate FiO2 06/22/16 11:34 80 20 100 Room Air 06/22/16 11:23 80 18 Room Air 06/22/16 10:32 81 18 113/80 96 Room Air 06/22/16 08:35 117/84 06/22/16 08:35 84 117/84 06/22/16 08:00 98.1 87 18 117/84 94 Room Air 06/22/16 07:59 84 20 100 Room Air 06/22/16 07:50 82 18 96 Room Air 06/22/16 07:50 82 18 Room Air 06/22/16 04:00 97.9 87 18 117/84 94 Room Air 06/22/16 03:13 20 Room Air 06/22/16 03:11 Room Air 06/22/16 00:00 97.8 86 18 94/61 96 Room Air 06/21/16 23:47 20 Room Air 06/21/16 23:47 Room Air 21 06/21/16 21:06 100 128/77 06/21/16 20:36 97.9 100 18 128/77 97 Room Air 06/21/16 16:00 97.2 96 21 126/92 100 Room Air Intake and Output 06/21/16 06/22/16 19:00 07:00 Intake Total 300 ml Balance 300 ml Intake Oral 300 ml # Voids 3 8 Laboratory Tests 06/22/16 04:50: White Blood Count 5.6, Red Blood Count 4.21, Hemoglobin 11.7L, Hematocrit 38.0, Mean Corpuscular Volume 90, Mean Corpuscular Hemoglobin 27.8, Mean Corpuscular Hemoglobin Concent 30.8L, Red Cell Distribution Width 17.8H, Platelet Count 179 , Mean Platelet Volume 5.8L, Neutrophils (%) (Auto) 74.4, Lymphocytes (%) (Auto ) 12.7L, Monocytes (%) (Auto) 8.3, Eosinophils (%) (Auto) 3.4H, Basophils (%) ( Auto) 1.1, Sodium Level 140, Potassium Level 3.3L, Chloride Level 101, Carbon Dioxide Level 26, Anion Gap 13, Blood Urea Nitrogen 18, Creatinine 0.9, Estimat Glomerular Filtration Rate > 60, Glucose Level 100, Calcium Level 7.9L, Iron Level 26L, Total Iron Binding Capacity 282, Percent Iron Saturation 9L, Unsaturated Iron Binding 256, Ammonia 48, Alpha Fetoprotein [Pending], Hepatitis A IgM Antibody [Pending], Hepatitis B Surface Antigen [Pending], Hepatitis B Core IgM Antibody [Pending], Hepatitis C Antibody [Pending] Height (Feet): 5 Weight (Pounds): 125 General Appearance: alert, confused EENT: normal ENT inspection Neck: normal alignment Cardiovascular: normal peripheral pulses, normal rate, regular rhythm Respiratory/Chest: chest wall non-tender, lungs clear, normal breath sounds Abdomen: normal bowel sounds, non tender, soft, distended Extremities: normal inspection Edema: 1+ Arm (L), 1+ Arm (R), 1+ Leg (L), 1+ Leg (R), 1+ Pedal (L), 1+ Pedal ( R), 1+ Generalized Neurologic: responsive, motor weakness Skin: normal pigmentation, warm/dry CHANDANA COVARRUBIAS Jun 22, 2016 13:15
--- NOTE | 2016-06-22 16:31 | Cardiac Electrophysiology PN ---
Assessment/Plan Assessment/Plan 1. Congestive heart failure. Continue Lasix 40 mg daily, Aldactone 25 mg daily, lisinopril 10 and Coreg 3.125 bid if she agrees. 2. Hypertension. Continue current heart failure medications. 3. Hepatic failure and ascites. The patient underwent paracentesis in the past. Follow up GI. 4. History of hyponatremia secondary to volume overload secondary to ascites and cirrhosis. 5. Agitation and noncompliance. JESES RN Subjective Subjective Refusing meds. RN and sitter at bedside. Off tele. Objective Last 24 Hour Vital Signs Date Time Temp Pulse Resp B/P Pulse Ox O2 Delivery O2 Flow Rate FiO2 06/22/16 15:17 Room Air 06/22/16 15:17 Room Air 06/22/16 12:00 98.1 80 18 130/78 94 Room Air 06/22/16 11:34 80 20 100 Room Air 21 06/22/16 11:23 80 18 Room Air 21 06/22/16 10:32 81 18 113/80 96 Room Air 06/22/16 08:35 117/84 06/22/16 08:35 84 117/84 06/22/16 08:00 98.1 87 18 117/84 94 Room Air 06/22/16 07:59 84 20 100 Room Air 21 06/22/16 07:50 82 18 96 Room Air 21 06/22/16 07:50 82 18 Room Air 21 06/22/16 04:00 97.9 87 18 117/84 94 Room Air 06/22/16 03:13 20 Room Air 21 06/22/16 03:11 Room Air 21 06/22/16 00:00 97.8 86 18 94/61 96 Room Air 06/21/16 23:47 20 Room Air 21 06/21/16 23:47 Room Air 21 06/21/16 21:06 100 128/77 06/21/16 20:36 97.9 100 18 128/77 97 Room Air Intake and Output 06/21/16 06/22/16 19:00 07:00 Intake Total 300 ml Balance 300 ml Intake Oral 300 ml # Voids 3 8 Laboratory Tests Test 06/22/16 04:50 White Blood Count 5.6 K/UL (4.8-10.8) Red Blood Count 4.21 M/UL (4.20-5.40) Hemoglobin 11.7 G/DL (12.0-16.0) L Hematocrit 38.0 % (37.0-47.0) Mean Corpuscular Volume 90 FL (80-99) Mean Corpuscular Hemoglobin 27.8 PG (27.0-31.0) Mean Corpuscular Hemoglobin Concent 30.8 G/DL (32.0-36.0) L Red Cell Distribution Width 17.8 % (11.6-14.8) H Platelet Count 179 K/UL (150-450) Mean Platelet Volume 5.8 FL (6.5-10.1) L Neutrophils (%) (Auto) 74.4 % (45.0-75.0) Lymphocytes (%) (Auto) 12.7 % (20.0-45.0) L Monocytes (%) (Auto) 8.3 % (1.0-10.0) Eosinophils (%) (Auto) 3.4 % (0.0-3.0) H Basophils (%) (Auto) 1.1 % (0.0-2.0) Sodium Level 140 mEQ/L (135-145) Potassium Level 3.3 mEQ/L (3.4-4.9) L Chloride Level 101 mEQ/L (98-107) Carbon Dioxide Level 26 mEQ/L (20-30) Anion Gap 13 (5-15) Blood Urea Nitrogen 18 mg/dL (7-23) Creatinine 0.9 mg/dL (0.5-0.9) Estimat Glomerular Filtration Rate > 60 mL/min (>60) Glucose Level 100 mg/dL (74-106) Calcium Level 7.9 mg/dL (8.6-10.2) L Iron Level 26 ug/dL (37-145) L Total Iron Binding Capacity 282 ug/dL (250-400) Percent Iron Saturation 9 % (15-50) L Unsaturated Iron Binding 256 ug/dL (112-346) Ammonia 48 umol/L (11-51) Alpha Fetoprotein Pending Hepatitis A IgM Antibody Pending Hepatitis B Surface Antigen Pending Hepatitis B Core IgM Antibody Pending Hepatitis C Antibody Pending Microbiology Date/Time Source Procedure Growth Status 06/20/16 11:15 Nasal Nares MRSA Culture - Final Staphylococcus Aureus - Mrsa Complete Objective HEAD AND NECK: Showed positive JVD. LUNGS: Decreased breath sounds. CARDIOVASCULAR: Shows regular S1 and S2 with no gallop or murmur. ABDOMEN: Soft. There is ascites. EXTREMITIES: A 1+ pitting edema. GARETH KAPOOR Jun 22, 2016 16:31
[2016-06-22] MEDS: Iron Sucrose 100 MG in NS 55 ML IVPB SCH (22:15)
--- NOTE | 2016-06-22 22:30 | Infectious Diseases Prog Note ---
Assessment/Plan Problems: (1) MRSA colonization Assessment & Plan: No evidence of active infection. OK to proceed with paracentesis with proper consent from ID perspective. (2) Ascites (3) End stage liver disease Subjective Allergies: Coded Allergies: No Known Allergies (Unverified , 01/02/16) Objective Vital Signs Last 24 Hour Vital Signs Date Time Temp Pulse Resp B/P Pulse Ox O2 Delivery O2 Flow Rate FiO2 06/22/16 21:50 107 154/91 06/22/16 20:00 97.9 107 18 154/91 93 Room Air 06/22/16 19:59 82 20 100 Room Air 21 06/22/16 19:42 80 18 96 Room Air 21 06/22/16 16:00 98.2 90 20 140/76 94 Room Air 06/22/16 15:17 Room Air 06/22/16 15:17 Room Air 06/22/16 12:00 98.1 80 18 130/78 94 Room Air 06/22/16 11:34 80 20 100 Room Air 21 06/22/16 11:23 80 18 Room Air 21 06/22/16 10:32 81 18 113/80 96 Room Air 06/22/16 08:35 117/84 06/22/16 08:35 84 117/84 06/22/16 08:00 98.1 87 18 117/84 94 Room Air 06/22/16 07:59 84 20 100 Room Air 21 06/22/16 07:50 82 18 96 Room Air 21 06/22/16 07:50 82 18 Room Air 21 06/22/16 04:00 97.9 87 18 117/84 94 Room Air 06/22/16 03:13 20 Room Air 21 06/22/16 03:11 Room Air 21 06/22/16 00:00 97.8 86 18 94/61 96 Room Air 06/21/16 23:47 20 Room Air 21 06/21/16 23:47 Room Air 21 Height (Feet): 5 Weight (Pounds): 125 Microbiology Date/Time Source Procedure Growth Status 06/20/16 11:15 Nasal Nares MRSA Culture - Final Staphylococcus Aureus - Mrsa Complete Laboratory Tests Test 06/22/16 04:50 White Blood Count 5.6 K/UL (4.8-10.8) Red Blood Count 4.21 M/UL (4.20-5.40) Hemoglobin 11.7 G/DL (12.0-16.0) L Hematocrit 38.0 % (37.0-47.0) Mean Corpuscular Volume 90 FL (80-99) Mean Corpuscular Hemoglobin 27.8 PG (27.0-31.0) Mean Corpuscular Hemoglobin Concent 30.8 G/DL (32.0-36.0) L Red Cell Distribution Width 17.8 % (11.6-14.8) H Platelet Count 179 K/UL (150-450) Mean Platelet Volume 5.8 FL (6.5-10.1) L Neutrophils (%) (Auto) 74.4 % (45.0-75.0) Lymphocytes (%) (Auto) 12.7 % (20.0-45.0) L Monocytes (%) (Auto) 8.3 % (1.0-10.0) Eosinophils (%) (Auto) 3.4 % (0.0-3.0) H Basophils (%) (Auto) 1.1 % (0.0-2.0) Sodium Level 140 mEQ/L (135-145) Potassium Level 3.3 mEQ/L (3.4-4.9) L Chloride Level 101 mEQ/L (98-107) Carbon Dioxide Level 26 mEQ/L (20-30) Anion Gap 13 (5-15) Blood Urea Nitrogen 18 mg/dL (7-23) Creatinine 0.9 mg/dL (0.5-0.9) Estimat Glomerular Filtration Rate > 60 mL/min (>60) Glucose Level 100 mg/dL (74-106) Calcium Level 7.9 mg/dL (8.6-10.2) L Iron Level 26 ug/dL (37-145) L Total Iron Binding Capacity 282 ug/dL (250-400) Percent Iron Saturation 9 % (15-50) L Unsaturated Iron Binding 256 ug/dL (112-346) Ammonia 48 umol/L (11-51) Alpha Fetoprotein Pending Hepatitis A IgM Antibody Pending Hepatitis B Surface Antigen Pending Hepatitis B Core IgM Antibody Pending Hepatitis C Antibody Pending Current Medications Medications (Trade) Dose Ordered Sig/Fela Route PRN Reason Start Time Stop Time Status Last Admin Dose Admin Acetaminophen (Tylenol) 650 mg Q4H PRN ORAL fever 06/20/16 18:00 07/20/16 17:59 Al Hydroxide/Mg Hydroxide (Mylanta II) 30 ml Q6H PRN ORAL dyspepsia 06/20/16 18:00 07/20/16 17:59 Albuterol/ Ipratropium (DuoNeb 0.5-3(2.5)mg/3ml) 3 ml Q4HRT HHN 06/21/16 19:00 06/26/16 18:59 06/22/16 19:41 Carvedilol (Coreg) 3.125 mg EVERY 12 HOURS ORAL 06/21/16 21:00 07/21/16 20:59 06/22/16 21:50 Dextrose (Dextrose 50%) STAT PRN IV Hypoglycemia 06/20/16 18:00 07/20/16 17:59 Diphenhydramine HCl (Benadryl) 25 mg Q6H PRN ORAL Itching/Pruritis 06/20/16 18:00 07/20/16 17:59 Furosemide (Lasix) 40 mg DAILY ORAL 06/21/16 09:00 07/21/16 08:59 06/21/16 08:41 Guaifenesin (Robitussin) 100 mg Q4H PRN ORAL For Cough 06/21/16 17:00 07/21/16 16:59 06/22/16 05:23 Iron Sucrose/ Sodium Chloride (Venofer/Sodium Chloride) 60 ml @ 240 mls/hr BEDTIME IVPB 06/22/16 21:00 06/24/16 21:14 06/22/16 22:15 Lactulose (Cephulac) 20 gm EVERY 8 HOURS ORAL 06/20/16 22:00 07/20/16 21:59 06/22/16 05:57 Levothyroxine Sodium (Synthroid) 50 mcg DAILY@0630 ORAL 06/21/16 06:30 07/21/16 06:29 06/22/16 05:57 Lisinopril (Zestril) 10 mg DAILY ORAL 06/22/16 09:00 07/22/16 08:59 Lorazepam 2 mg 2 mg Q6H PRN IM For Anxiety 06/22/16 09:30 06/29/16 09:29 06/22/16 12:40 Morphine Sulfate (Morphine Sulfate) 2 mg EVERY 4 HOURS PRN IVP Severe Pain (Pain Scale 7-10) 06/20/16 18:00 06/27/16 17:59 Nitroglycerin (Ntg) 0.4 mg Q5M X 3 DOSES PRN SL Prn Chest Pain 06/20/16 18:00 07/20/16 17:59 Ondansetron HCl (Zofran) 4 mg Q6H PRN IVP Nausea & Vomiting 06/20/16 18:00 07/20/16 17:59 Polyethylene Glycol (Miralax) 17 gm HSPRN PRN ORAL Constipation 06/20/16 21:00 07/20/16 20:59 Quetiapine Fumarate (SEROquel) 50 mg THREE TIMES A DAY ORAL 06/20/16 18:00 07/20/16 17:59 06/22/16 08:23 Spironolactone (Aldactone) 25 mg DAILY ORAL 06/21/16 09:00 07/21/16 08:59 06/21/16 08:41 Temazepam (Restoril) 15 mg HSPRN PRN ORAL Insomnia 06/20/16 21:00 06/27/16 20:59 06/21/16 21:08 JULIAN RAY Jun 22, 2016 22:30
--- NOTE | 2016-06-22 23:16 | Pulmonology Progress Note ---
Assessment/Plan Problems: (1) Ascites (2) End stage liver disease (3) CKD (chronic kidney disease) (4) Elevated CEA Assessment/Plan paracenthesis optimize cardiac meds EF is 20% consider comfort care, considering chronic failure of two major organs, live and heart. Subjective ROS Limited/Unobtainable: Yes Interval Events: lethargic Allergies: Coded Allergies: No Known Allergies (Unverified , 01/02/16) Objective Last 24 Hour Vital Signs Date Time Temp Pulse Resp B/P Pulse Ox O2 Delivery O2 Flow Rate FiO2 06/22/16 21:50 107 154/91 06/22/16 20:00 97.9 107 18 154/91 93 Room Air 06/22/16 19:59 82 20 100 Room Air 21 06/22/16 19:42 80 18 96 Room Air 21 06/22/16 16:00 98.2 90 20 140/76 94 Room Air 06/22/16 15:17 Room Air 06/22/16 15:17 Room Air 06/22/16 12:00 98.1 80 18 130/78 94 Room Air 06/22/16 11:34 80 20 100 Room Air 21 06/22/16 11:23 80 18 Room Air 21 06/22/16 10:32 81 18 113/80 96 Room Air 06/22/16 08:35 117/84 06/22/16 08:35 84 117/84 06/22/16 08:00 98.1 87 18 117/84 94 Room Air 06/22/16 07:59 84 20 100 Room Air 21 06/22/16 07:50 82 18 96 Room Air 21 06/22/16 07:50 82 18 Room Air 21 06/22/16 04:00 97.9 87 18 117/84 94 Room Air 06/22/16 03:13 20 Room Air 21 06/22/16 03:11 Room Air 21 06/22/16 00:00 97.8 86 18 94/61 96 Room Air 06/21/16 23:47 20 Room Air 21 06/21/16 23:47 Room Air 21 Intake and Output 06/21/16 06/22/16 19:00 07:00 Intake Total 300 ml Balance 300 ml Intake Oral 300 ml # Voids 3 8 Objective General Appearance: cachetic Lines, tubes and drains: peripheral, HEENT: normocephalic, atraumatic Neck: non-tender, normal alignment Respiratory/Chest: chest wall non-tender, lungs clear Cardiovascular/Chest: normal peripheral pulses, normal rate Abdomen: normal bowel sounds, distended Genitourinary/Rectal: normal genital exam Extremities: normal range of motion Skin Exam: normal pigmentation Microbiology Date/Time Source Procedure Growth Status 06/20/16 11:15 Nasal Nares MRSA Culture - Final Staphylococcus Aureus - Mrsa Complete Laboratory Tests 06/22/16 04:50: White Blood Count 5.6, Red Blood Count 4.21, Hemoglobin 11.7L, Hematocrit 38.0, Mean Corpuscular Volume 90, Mean Corpuscular Hemoglobin 27.8, Mean Corpuscular Hemoglobin Concent 30.8L, Red Cell Distribution Width 17.8H, Platelet Count 179 , Mean Platelet Volume 5.8L, Neutrophils (%) (Auto) 74.4, Lymphocytes (%) (Auto ) 12.7L, Monocytes (%) (Auto) 8.3, Eosinophils (%) (Auto) 3.4H, Basophils (%) ( Auto) 1.1, Sodium Level 140, Potassium Level 3.3L, Chloride Level 101, Carbon Dioxide Level 26, Anion Gap 13, Blood Urea Nitrogen 18, Creatinine 0.9, Estimat Glomerular Filtration Rate > 60, Glucose Level 100, Calcium Level 7.9L, Iron Level 26L, Total Iron Binding Capacity 282, Percent Iron Saturation 9L, Unsaturated Iron Binding 256, Ammonia 48, Alpha Fetoprotein [Pending], Hepatitis A IgM Antibody [Pending], Hepatitis B Surface Antigen [Pending], Hepatitis B Core IgM Antibody [Pending], Hepatitis C Antibody [Pending] Current Medications Medications (Trade) Dose Ordered Sig/Fela Route PRN Reason Start Time Stop Time Status Last Admin Dose Admin Acetaminophen (Tylenol) 650 mg Q4H PRN ORAL fever 06/20/16 18:00 07/20/16 17:59 Al Hydroxide/Mg Hydroxide (Mylanta II) 30 ml Q6H PRN ORAL dyspepsia 06/20/16 18:00 07/20/16 17:59 Albuterol/ Ipratropium (DuoNeb 0.5-3(2.5)mg/3ml) 3 ml Q4HRT HHN 06/21/16 19:00 06/26/16 18:59 06/22/16 19:41 Carvedilol (Coreg) 3.125 mg EVERY 12 HOURS ORAL 06/21/16 21:00 07/21/16 20:59 06/22/16 21:50 Dextrose (Dextrose 50%) STAT PRN IV Hypoglycemia 06/20/16 18:00 07/20/16 17:59 Diphenhydramine HCl (Benadryl) 25 mg Q6H PRN ORAL Itching/Pruritis 06/20/16 18:00 07/20/16 17:59 Furosemide (Lasix) 40 mg DAILY ORAL 06/21/16 09:00 07/21/16 08:59 06/21/16 08:41 Guaifenesin (Robitussin) 100 mg Q4H PRN ORAL For Cough 06/21/16 17:00 07/21/16 16:59 06/22/16 05:23 Iron Sucrose/ Sodium Chloride (Venofer/Sodium Chloride) 60 ml @ 240 mls/hr BEDTIME IVPB 06/22/16 21:00 06/24/16 21:14 06/22/16 22:15 Lactulose (Cephulac) 20 gm EVERY 8 HOURS ORAL 06/20/16 22:00 07/20/16 21:59 06/22/16 22:29 Levothyroxine Sodium (Synthroid) 50 mcg DAILY@0630 ORAL 06/21/16 06:30 07/21/16 06:29 06/22/16 05:57 Lisinopril (Zestril) 10 mg DAILY ORAL 06/22/16 09:00 07/22/16 08:59 Lorazepam 2 mg 2 mg Q6H PRN IM For Anxiety 06/22/16 09:30 06/29/16 09:29 06/22/16 12:40 Morphine Sulfate (Morphine Sulfate) 2 mg EVERY 4 HOURS PRN IVP Severe Pain (Pain Scale 7-10) 06/20/16 18:00 06/27/16 17:59 Nitroglycerin (Ntg) 0.4 mg Q5M X 3 DOSES PRN SL Prn Chest Pain 06/20/16 18:00 07/20/16 17:59 Ondansetron HCl (Zofran) 4 mg Q6H PRN IVP Nausea & Vomiting 06/20/16 18:00 07/20/16 17:59 Polyethylene Glycol (Miralax) 17 gm HSPRN PRN ORAL Constipation 06/20/16 21:00 07/20/16 20:59 Quetiapine Fumarate (SEROquel) 50 mg THREE TIMES A DAY ORAL 06/20/16 18:00 07/20/16 17:59 06/22/16 08:23 Spironolactone (Aldactone) 25 mg DAILY ORAL 06/21/16 09:00 07/21/16 08:59 06/21/16 08:41 Temazepam (Restoril) 15 mg HSPRN PRN ORAL Insomnia 06/20/16 21:00 06/27/16 20:59 06/22/16 23:08 GLEN SAMAYOA Jun 22, 2016 23:16
--- NOTE | 2016-06-22 23:36 | Nephrology Progress Note ---
Objective Objective Last 24 Hour Vital Signs Date Time Temp Pulse Resp B/P Pulse Ox O2 Delivery O2 Flow Rate FiO2 06/22/16 23:30 97.7 103 18 149/86 96 Room Air 06/22/16 21:50 107 154/91 06/22/16 20:00 97.9 107 18 154/91 93 Room Air 06/22/16 19:59 82 20 100 Room Air 21 06/22/16 19:42 80 18 96 Room Air 21 06/22/16 16:00 98.2 90 20 140/76 94 Room Air 06/22/16 15:17 Room Air 06/22/16 15:17 Room Air 06/22/16 12:00 98.1 80 18 130/78 94 Room Air 06/22/16 11:34 80 20 100 Room Air 21 06/22/16 11:23 80 18 Room Air 21 06/22/16 10:32 81 18 113/80 96 Room Air 06/22/16 08:35 117/84 06/22/16 08:35 84 117/84 06/22/16 08:00 98.1 87 18 117/84 94 Room Air 06/22/16 07:59 84 20 100 Room Air 21 06/22/16 07:50 82 18 96 Room Air 21 06/22/16 07:50 82 18 Room Air 21 06/22/16 04:00 97.9 87 18 117/84 94 Room Air 06/22/16 03:13 20 Room Air 21 06/22/16 03:11 Room Air 21 06/22/16 00:00 97.8 86 18 94/61 96 Room Air 06/21/16 23:47 20 Room Air 21 06/21/16 23:47 Room Air 21 Intake and Output 06/21/16 06/22/16 19:00 07:00 Intake Total 300 ml Balance 300 ml Intake Oral 300 ml # Voids 3 8 Laboratory Tests 06/22/16 04:50: White Blood Count 5.6, Red Blood Count 4.21, Hemoglobin 11.7L, Hematocrit 38.0, Mean Corpuscular Volume 90, Mean Corpuscular Hemoglobin 27.8, Mean Corpuscular Hemoglobin Concent 30.8L, Red Cell Distribution Width 17.8H, Platelet Count 179 , Mean Platelet Volume 5.8L, Neutrophils (%) (Auto) 74.4, Lymphocytes (%) (Auto ) 12.7L, Monocytes (%) (Auto) 8.3, Eosinophils (%) (Auto) 3.4H, Basophils (%) ( Auto) 1.1, Sodium Level 140, Potassium Level 3.3L, Chloride Level 101, Carbon Dioxide Level 26, Anion Gap 13, Blood Urea Nitrogen 18, Creatinine 0.9, Estimat Glomerular Filtration Rate > 60, Glucose Level 100, Calcium Level 7.9L, Iron Level 26L, Total Iron Binding Capacity 282, Percent Iron Saturation 9L, Unsaturated Iron Binding 256, Ammonia 48, Alpha Fetoprotein [Pending], Hepatitis A IgM Antibody [Pending], Hepatitis B Surface Antigen [Pending], Hepatitis B Core IgM Antibody [Pending], Hepatitis C Antibody [Pending] Height (Feet): 5 Weight (Pounds): 125 LEENA ASH Jun 22, 2016 23:36
[2016-06-23] MEDS: DuoNeb 0.5-3(2.5)mg/3ml neb HHN SCH ×6 (03:00→22:00)
[2016-06-23 04:00] VITALS: BP 133/73
[2016-06-23] MEDS: Lactulose 20gm/30ml UDC ORAL SCH ×3 (06:00→22:00)
[2016-06-23 07:06] LABS: BASOPHILS % (AUTO) 1.3 % (0.0-2.0); EOSINOPHILS % (AUTO) 1.9 % (0.0-3.0); LYMPHOCYTES % (AUTO) 9.8 % (20.0-45.0); MEAN CORPUSCULAR HEMOGLOBIN 28.5 PG (27.0-31.0); MEAN CORPUSCULAR HGB CONC 31.4 G/DL (32.0-36.0); MEAN CORPUSCULAR VOLUME 91 FL (80-99); MEAN PLATELET VOLUME 6.2 FL (6.5-10.1); MONOCYTES % (AUTO) 6.9 % (1.0-10.0); NEUTROPHILS % (AUTO) 80.1 % (45.0-75.0); PLATELET COUNT 210 K/UL (150-450); RED BLOOD COUNT 4.32 M/UL (4.20-5.40); WHITE BLOOD COUNT 7.4 K/UL (4.8-10.8)
[2016-06-23 07:12] LABS: ALBUMIN/GLOBULIN RATIO 0.6 (1.0-2.7); CALCIUM 7.9 mg/dL (8.6-10.2); CREATININE 1.1 mg/dL (0.5-0.9); GLOMERULAR FILTRATION RATE 50.7 mL/min (>60); POTASSIUM 3.5 mEQ/L (3.4-4.9); TOTAL PROTEIN 5.7 g/dL (6.6-8.7)
[2016-06-23 07:25] LABS: BILIRUBIN,DIRECT 0.4 mg/dL (0.1-0.3)
--- NOTE | 2016-06-23 07:55 | Cardiology Report ---
APPROVED REPORT EXAM: Two-dimensional and M-mode echocardiogram with Doppler and color Doppler. INDICATION Congestive Heart Failure M-Mode DIMENSIONS IVSd0.9 (0.7-1.1cm)Left Atrium (MM)4.6 (1.6-4.0cm) LVDd6.2 (3.5-5.6cm)Aortic Root2.5 (2.0-3.7cm) PWd0.9 (0.7-1.1cm)Aortic Cusp Exc.1.9 (1.5-2.0cm) LVDs5.6 (2.5-4.0cm) PWs1.2 cm Technically difficult study due to poor acoustic windows due to patient moving. Mild left ventricular enlargement. Severly global left ventricular hypokinesis. Left ventricular ejection fraction estimated to be 20-25%. No left ventricular hypertrophy. Small posterior pericardial effusion. Mild left atrial enlargement by 2D. Moderate right atrial enlargement by 2D. Focal aortic valve sclerosis with adequate cusp excursion Thickened mitral valve leaflets with normal excursion. Mitral annulus and aortic root calcification. Pulmonic valve is well visualized. Normal tricuspid valve structure. IVC dilated at 2.5cm with no physiologic collapse. RA pressure of 20mmHg. A color flow and spectral Doppler study was performed and revealed: No aortic regurgitation. Mild mitral regurgitation. Left ventricular diastolic dysfunction not obtainable due to A-FIB. Moderate tricuspid regurgitation. Tricuspid systolic velocities suggests peak right ventricular systolic pressure of 48 mmHg Consistent with moderate pulmonary hypertension. Pulmonic regurgitation present.
[2016-06-23 08:00] VITALS: BP 134/80
[2016-06-23] MEDS: Furosemide 40mg tab ORAL SCH ×2 (08:28→08:32)
[2016-06-23] MEDS: Lisinopril 10mg tab ORAL SCH ×2 (08:28→08:32)
[2016-06-23] MEDS: Spironolactone 25mg tab ORAL SCH ×2 (08:28→08:31)
[2016-06-23] MEDS: LORazepam Inj 2mg/ml 1ml IM PRN (10:46)
[2016-06-23 11:52] VITALS: BP 130/73
--- NOTE | 2016-06-23 12:25 | GI Progress Note ---
Assessment/Plan Problems: (1) End stage liver disease ICD Codes: K72.90 - Hepatic failure, unspecified without coma SNOMED: 858021038 (2) Ascites ICD Codes: R18.8 - Other ascites SNOMED: 080339255 (3) Elevated CEA ICD Codes: R97.0 - Elevated carcinoembryonic antigen [CEA] SNOMED: 58448960, 115596198 (4) Dementia ICD Codes: F03.90 - Unspecified dementia without behavioral disturbance SNOMED: 54354817 (5) Anemia ICD Codes: D64.9 - Anemia, unspecified SNOMED: 989295258 (6) Iron deficiency ICD Codes: E61.1 - Iron deficiency SNOMED: 93596372 Status: unchanged Status Narrative Discussed with Dr. Kiser. Assessment/Plan AFP >> WNL iron deficient >> venofer fu abdominal U/S, taken fu paracentesis >> r/o SBP >> refused ammonia levels, WNL >> cont lactulose + Xifaxan low sodium diet GI prophylaxis, H2 fu labs Subjective Subjective limited Objective Last 24 Hour Vital Signs Date Time Temp Pulse Resp B/P Pulse Ox O2 Delivery O2 Flow Rate FiO2 06/23/16 11:52 97.5 90 18 130/73 96 Room Air 06/23/16 10:30 Room Air 06/23/16 10:30 Room Air 06/23/16 08:32 133/73 06/23/16 08:32 73 133/73 06/23/16 08:00 98.0 94 18 134/80 100 Room Air 06/23/16 07:33 73 18 100 Room Air 06/23/16 07:22 93 18 100 Room Air 06/23/16 04:00 97.3 93 18 133/73 92 Room Air 06/23/16 03:32 Room Air 21 06/23/16 03:32 Room Air 06/22/16 23:39 Room Air 06/22/16 23:38 Room Air 06/22/16 23:30 97.7 103 18 149/86 96 Room Air 06/22/16 21:50 107 154/91 06/22/16 20:00 97.9 107 18 154/91 93 Room Air 06/22/16 19:59 82 20 100 Room Air 06/22/16 19:42 80 18 96 Room Air 21 06/22/16 16:00 98.2 90 20 140/76 94 Room Air 06/22/16 15:17 Room Air 06/22/16 15:17 Room Air Intake and Output 06/22/16 06/23/16 19:00 07:00 Intake Total 120 ml Balance 120 ml Intake Oral 60 ml IV Total 60 ml # Voids 2 Laboratory Tests Test 06/23/16 05:30 White Blood Count 7.4 K/UL (4.8-10.8) Red Blood Count 4.32 M/UL (4.20-5.40) Hemoglobin 12.3 G/DL (12.0-16.0) Hematocrit 39.2 % (37.0-47.0) Mean Corpuscular Volume 91 FL (80-99) Mean Corpuscular Hemoglobin 28.5 PG (27.0-31.0) Mean Corpuscular Hemoglobin Concent 31.4 G/DL (32.0-36.0) L Red Cell Distribution Width 18.0 % (11.6-14.8) H Platelet Count 210 K/UL (150-450) Mean Platelet Volume 6.2 FL (6.5-10.1) L Neutrophils (%) (Auto) 80.1 % (45.0-75.0) H Lymphocytes (%) (Auto) 9.8 % (20.0-45.0) L Monocytes (%) (Auto) 6.9 % (1.0-10.0) Eosinophils (%) (Auto) 1.9 % (0.0-3.0) Basophils (%) (Auto) 1.3 % (0.0-2.0) Sodium Level 135 mEQ/L (135-145) Potassium Level 3.5 mEQ/L (3.4-4.9) Chloride Level 95 mEQ/L (98-107) L Carbon Dioxide Level 24 mEQ/L (20-30) Anion Gap 16 (5-15) H Blood Urea Nitrogen 17 mg/dL (7-23) Creatinine 1.1 mg/dL (0.5-0.9) H Estimat Glomerular Filtration Rate 50.7 mL/min (>60) Glucose Level 88 mg/dL (74-106) Calcium Level 7.9 mg/dL (8.6-10.2) L Total Bilirubin 1.1 mg/dL (0.0-1.2) Direct Bilirubin 0.4 mg/dL (0.1-0.3) H Aspartate Amino Transf (AST/SGOT) 28 U/L (5-40) Alanine Aminotransferase (ALT/SGPT) 16 U/L (3-33) Alkaline Phosphatase 102 U/L (35-104) Total Protein 5.7 g/dL (6.6-8.7) L Albumin 2.2 g/dL (3.5-5.2) L Globulin 3.5 g/dL Albumin/Globulin Ratio 0.6 (1.0-2.7) L Height (Feet): 5 Weight (Pounds): 120 General Appearance: no apparent distress, alert, confused Cardiovascular: normal rate Respiratory/Chest: no respiratory distress Abdominal Exam: soft, distended, ascites Greta David N.P. Jun 23, 2016 12:25
--- NOTE | 2016-06-23 14:15 | Cardiac Electrophysiology PN ---
Assessment/Plan Assessment/Plan 1. Congestive heart failure with EF 20-25%. Continue Lasix 40 mg daily, Aldactone 25 mg daily, lisinopril 10 and Coreg 3.125 bid if she agrees. 2. Hypertension. Continue current heart failure medications. 3. Hepatic failure and ascites. Paracentesis today if consent obtained.Follow up GI. 4. History of hyponatremia secondary to volume overload secondary to ascites and cirrhosis. 5. Agitation and noncompliance. JESSE RN Subjective Subjective Refusing meds. RN and sitter at bedside. Off tele.Scheduled for paracentesis today pending 2 physician documentation. Objective Last 24 Hour Vital Signs Date Time Temp Pulse Resp B/P Pulse Ox O2 Delivery O2 Flow Rate FiO2 06/23/16 11:52 97.5 90 18 130/73 96 Room Air 06/23/16 10:30 Room Air 21 06/23/16 10:30 Room Air 06/23/16 08:32 133/73 06/23/16 08:32 73 133/73 06/23/16 08:00 98.0 94 18 134/80 100 Room Air 06/23/16 07:33 73 18 100 Room Air 21 06/23/16 07:22 93 18 100 Room Air 21 06/23/16 04:00 97.3 93 18 133/73 92 Room Air 06/23/16 03:32 Room Air 21 06/23/16 03:32 Room Air 06/22/16 23:39 Room Air 21 06/22/16 23:38 Room Air 06/22/16 23:30 97.7 103 18 149/86 96 Room Air 06/22/16 21:50 107 154/91 06/22/16 20:00 97.9 107 18 154/91 93 Room Air 06/22/16 19:59 82 20 100 Room Air 21 06/22/16 19:42 80 18 96 Room Air 21 06/22/16 16:00 98.2 90 20 140/76 94 Room Air 06/22/16 15:17 Room Air 06/22/16 15:17 Room Air Intake and Output 06/22/16 06/23/16 19:00 07:00 Intake Total 120 ml Balance 120 ml Intake Oral 60 ml IV Total 60 ml # Voids 2 Laboratory Tests Test 06/23/16 05:30 White Blood Count 7.4 K/UL (4.8-10.8) Red Blood Count 4.32 M/UL (4.20-5.40) Hemoglobin 12.3 G/DL (12.0-16.0) Hematocrit 39.2 % (37.0-47.0) Mean Corpuscular Volume 91 FL (80-99) Mean Corpuscular Hemoglobin 28.5 PG (27.0-31.0) Mean Corpuscular Hemoglobin Concent 31.4 G/DL (32.0-36.0) L Red Cell Distribution Width 18.0 % (11.6-14.8) H Platelet Count 210 K/UL (150-450) Mean Platelet Volume 6.2 FL (6.5-10.1) L Neutrophils (%) (Auto) 80.1 % (45.0-75.0) H Lymphocytes (%) (Auto) 9.8 % (20.0-45.0) L Monocytes (%) (Auto) 6.9 % (1.0-10.0) Eosinophils (%) (Auto) 1.9 % (0.0-3.0) Basophils (%) (Auto) 1.3 % (0.0-2.0) Sodium Level 135 mEQ/L (135-145) Potassium Level 3.5 mEQ/L (3.4-4.9) Chloride Level 95 mEQ/L (98-107) L Carbon Dioxide Level 24 mEQ/L (20-30) Anion Gap 16 (5-15) H Blood Urea Nitrogen 17 mg/dL (7-23) Creatinine 1.1 mg/dL (0.5-0.9) H Estimat Glomerular Filtration Rate 50.7 mL/min (>60) Glucose Level 88 mg/dL (74-106) Calcium Level 7.9 mg/dL (8.6-10.2) L Total Bilirubin 1.1 mg/dL (0.0-1.2) Direct Bilirubin 0.4 mg/dL (0.1-0.3) H Aspartate Amino Transf (AST/SGOT) 28 U/L (5-40) Alanine Aminotransferase (ALT/SGPT) 16 U/L (3-33) Alkaline Phosphatase 102 U/L (35-104) Total Protein 5.7 g/dL (6.6-8.7) L Albumin 2.2 g/dL (3.5-5.2) L Globulin 3.5 g/dL Albumin/Globulin Ratio 0.6 (1.0-2.7) L Objective HEAD AND NECK: Mild JVD. LUNGS: Decreased breath sounds. CARDIOVASCULAR: Shows regular S1 and S2 with no gallop or murmur. ABDOMEN: Soft. There is ascites. EXTREMITIES: A 1+ pitting edema. GARETH KAPOOR Jun 23, 2016 14:15
--- NOTE | 2016-06-23 14:22 | General Progress Note ---
Assessment/Plan Problem List: (1) HTN (hypertension) ICD Codes: I10 - Essential (primary) hypertension SNOMED: 70426220 (2) Dementia ICD Codes: F03.90 - Unspecified dementia without behavioral disturbance SNOMED: 25856661 (3) CHF (congestive heart failure) ICD Codes: I50.9 - Heart failure, unspecified SNOMED: 40067366 (4) Ascites ICD Codes: R18.8 - Other ascites SNOMED: 657678806 (5) Dyspnea ICD Codes: R06.00 - Dyspnea, unspecified SNOMED: 849850697 (6) End stage liver disease ICD Codes: K72.90 - Hepatic failure, unspecified without coma SNOMED: 687601432 (7) CKD (chronic kidney disease) ICD Codes: N18.9 - Chronic kidney disease, unspecified SNOMED: 266835442 Status: stable, progressing, tolerating diet Assessment/Plan ot pt diet cbc bmp am possible pericentesis Subjective Constitutional: Reports: weakness Allergies: Coded Allergies: No Known Allergies (Unverified , 01/02/16) All Systems: reviewed and negative except above Subjective sitting calm Objective Last 24 Hour Vital Signs Date Time Temp Pulse Resp B/P Pulse Ox O2 Delivery O2 Flow Rate FiO2 06/23/16 11:52 97.5 90 18 130/73 96 Room Air 06/23/16 10:30 Room Air 06/23/16 10:30 Room Air 06/23/16 08:32 133/73 06/23/16 08:32 73 133/73 06/23/16 08:00 98.0 94 18 134/80 100 Room Air 06/23/16 07:33 73 18 100 Room Air 06/23/16 07:22 93 18 100 Room Air 06/23/16 04:00 97.3 93 18 133/73 92 Room Air 06/23/16 03:32 Room Air 06/23/16 03:32 Room Air 06/22/16 23:39 Room Air 06/22/16 23:38 Room Air 06/22/16 23:30 97.7 103 18 149/86 96 Room Air 06/22/16 21:50 107 154/91 06/22/16 20:00 97.9 107 18 154/91 93 Room Air 06/22/16 19:59 82 20 100 Room Air 06/22/16 19:42 80 18 96 Room Air 21 06/22/16 16:00 98.2 90 20 140/76 94 Room Air 06/22/16 15:17 Room Air 06/22/16 15:17 Room Air Intake and Output 06/22/16 06/23/16 19:00 07:00 Intake Total 120 ml Balance 120 ml Intake Oral 60 ml IV Total 60 ml # Voids 2 Laboratory Tests 06/23/16 05:30: White Blood Count 7.4, Red Blood Count 4.32, Hemoglobin 12.3, Hematocrit 39.2, Mean Corpuscular Volume 91, Mean Corpuscular Hemoglobin 28.5, Mean Corpuscular Hemoglobin Concent 31.4L, Red Cell Distribution Width 18.0H, Platelet Count 210 , Mean Platelet Volume 6.2L, Neutrophils (%) (Auto) 80.1H, Lymphocytes (%) (Auto ) 9.8L, Monocytes (%) (Auto) 6.9, Eosinophils (%) (Auto) 1.9, Basophils (%) ( Auto) 1.3, Sodium Level 135, Potassium Level 3.5, Chloride Level 95L, Carbon Dioxide Level 24, Anion Gap 16H, Blood Urea Nitrogen 17, Creatinine 1.1H, Estimat Glomerular Filtration Rate 50.7, Glucose Level 88, Calcium Level 7.9L, Total Bilirubin 1.1, Direct Bilirubin 0.4H, Aspartate Amino Transf (AST/SGOT) 28 , Alanine Aminotransferase (ALT/SGPT) 16, Alkaline Phosphatase 102, Total Protein 5.7L, Albumin 2.2L, Globulin 3.5, Albumin/Globulin Ratio 0.6L Height (Feet): 5 Weight (Pounds): 120 General Appearance: confused EENT: normal ENT inspection Neck: normal alignment Cardiovascular: normal peripheral pulses, normal rate, regular rhythm Respiratory/Chest: chest wall non-tender, lungs clear, normal breath sounds Abdomen: normal bowel sounds, non tender, decreased bowel sounds, distended Extremities: normal inspection Edema: 1+ Arm (L), 1+ Arm (R), 1+ Leg (L), 1+ Leg (R), 1+ Pedal (L), 1+ Pedal ( R), 1+ Generalized Neurologic: motor weakness Skin: normal pigmentation, warm/dry CHANDANA COVARRUBIAS Jun 23, 2016 14:22
[2016-06-23 16:37] VITALS: BP 130/73
--- NOTE | 2016-06-23 17:04 | Diagnostic Imaging Report ---
Indication: Liver disease, abnormal renal function test liver function tests Technique: Estrada-scale and duplex images of the upper abdomen were obtained Comparison: 01/03/2016 CT abdomen pelvis Findings: There is a small amount of ascites fluid present. There are bilateral pleural effusions. Gallbladder demonstrates marked wall thickening, wall thickness measuring up to 6 mm. There is a 5 mm polyp in the fundus. No gallstones. Gallbladder is incompletely distended. Common bile duct measures 6 mm in diameter. No intrahepatic biliary ductal dilatation. Liver demonstrates coarsened echogenicity. It demonstrates surface nodularity. Multiple cysts are seen within the right hepatic lobe. The hepatic veins and inferior vena cava are dilated. Portal vein and hepatic veins are patent. Pancreas is unremarkable. Spleen is unremarkable. Left kidney measures 11.4 cm in length. Right kidney measures 15.1 cm length. The left kidney demonstrates normal echogenicity and no hydronephrosis the right kidney demonstrates massive hydronephrosis, with marked thinning of the renal cortex. This is progressive the prior CT scan. Shadowing calculi are seen within the left renal sinus, also demonstrated on prior CT. Non-aneurysmal abdominal aorta . Impression: Massive left hydronephrosis, etiology not demonstrated, with severe thinning of the renal cortex, presumably long-standing Evidence of anasarca, also previously described, with ascites, bilateral pleural effusions. Negative for gallstones. However, gallbladder wall is thickened. Suspect that this is a manifestation of anasarca, but acute acalculus cholecystitis not completely excludable.: Clinical findings, consider nuclear medicine hepatobiliary scanning if there is high clinical suspicion. Dilated inferior vena cava, compatible with central venous hypertension Echogenic liver with surface nodularity, suspicious for cirrhotic change, also demonstrated on prior CT Nonobstructive left renal calculi, also demonstrated on prior CT Incidental finding of 5 mm gallbladder polyp Incidental finding of multiple right hepatic lobe cysts, also described on prior CT
--- NOTE | 2016-06-23 18:50 | Nephrology Progress Note ---
Assessment/Plan Problem List: (1) Hypokalemia (2) Ascites (3) Dyspnea (4) CKD (chronic kidney disease) Plan Monitor renal function Monitor lytes, correct as needed Avoid nephrotoxic agents Monitor neuro status Pain management as tolerated Subjective ROS Limited/Unobtainable: Yes Subjective In bed, in no distress, sitter at bedside Objective Objective Last 24 Hour Vital Signs Date Time Temp Pulse Resp B/P Pulse Ox O2 Delivery O2 Flow Rate FiO2 06/23/16 16:37 97.5 90 18 130/73 96 Room Air 21 06/23/16 15:39 Room Air 06/23/16 15:39 Room Air 06/23/16 11:52 97.5 90 18 130/73 96 Room Air 06/23/16 10:30 Room Air 21 06/23/16 10:30 Room Air 06/23/16 08:32 133/73 06/23/16 08:32 73 133/73 06/23/16 08:00 98.0 94 18 134/80 100 Room Air 06/23/16 07:33 73 18 100 Room Air 21 06/23/16 07:22 93 18 100 Room Air 21 06/23/16 04:00 97.3 93 18 133/73 92 Room Air 06/23/16 03:32 Room Air 21 06/23/16 03:32 Room Air 06/22/16 23:39 Room Air 21 06/22/16 23:38 Room Air 06/22/16 23:30 97.7 103 18 149/86 96 Room Air 06/22/16 21:50 107 154/91 06/22/16 20:00 97.9 107 18 154/91 93 Room Air 06/22/16 19:59 82 20 100 Room Air 21 06/22/16 19:42 80 18 96 Room Air 21 Intake and Output 06/22/16 06/23/16 19:00 07:00 Intake Total 120 ml Balance 120 ml Intake Oral 60 ml IV Total 60 ml # Voids 2 Laboratory Tests 06/23/16 05:30: White Blood Count 7.4, Red Blood Count 4.32, Hemoglobin 12.3, Hematocrit 39.2, Mean Corpuscular Volume 91, Mean Corpuscular Hemoglobin 28.5, Mean Corpuscular Hemoglobin Concent 31.4L, Red Cell Distribution Width 18.0H, Platelet Count 210 , Mean Platelet Volume 6.2L, Neutrophils (%) (Auto) 80.1H, Lymphocytes (%) (Auto ) 9.8L, Monocytes (%) (Auto) 6.9, Eosinophils (%) (Auto) 1.9, Basophils (%) ( Auto) 1.3, Sodium Level 135, Potassium Level 3.5, Chloride Level 95L, Carbon Dioxide Level 24, Anion Gap 16H, Blood Urea Nitrogen 17, Creatinine 1.1H, Estimat Glomerular Filtration Rate 50.7, Glucose Level 88, Calcium Level 7.9L, Total Bilirubin 1.1, Direct Bilirubin 0.4H, Aspartate Amino Transf (AST/SGOT) 28 , Alanine Aminotransferase (ALT/SGPT) 16, Alkaline Phosphatase 102, Total Protein 5.7L, Albumin 2.2L, Globulin 3.5, Albumin/Globulin Ratio 0.6L Height (Feet): 5 Weight (Pounds): 120 General Appearance: no apparent distress, lethargic EENT: normal ENT inspection Neck: non-tender, normal alignment Cardiovascular: normal rate, regular rhythm Respiratory/Chest: decreased breath sounds Abdomen: non tender, soft Extremities: non-tender Neurologic: responsive, motor weakness, disoriented Zena Donohue N.P. Jun 23, 2016 18:50
[2016-06-23 20:19] VITALS: BP 131/94
[2016-06-23] MEDS: Iron Sucrose 100 MG in NS 55 ML IVPB SCH (21:12)
--- NOTE | 2016-06-23 23:37 | Infectious Diseases Prog Note ---
Assessment/Plan Problems: (1) MRSA colonization Assessment & Plan: No evidence of active infection. OK to proceed with paracentesis with proper consent from ID perspective. (2) Ascites (3) End stage liver disease Subjective Allergies: Coded Allergies: No Known Allergies (Unverified , 01/02/16) Objective Vital Signs Last 24 Hour Vital Signs Date Time Temp Pulse Resp B/P Pulse Ox O2 Delivery O2 Flow Rate FiO2 06/23/16 22:08 102 18 100 Room Air 06/23/16 22:00 101 18 98 Room Air 21 06/23/16 21:15 98 131/94 06/23/16 20:19 97.5 98 19 131/94 94 Room Air 06/23/16 18:55 103 18 100 Room Air 06/23/16 18:50 102 18 98 Room Air 21 06/23/16 16:37 97.5 90 18 130/73 96 Room Air 21 06/23/16 15:39 Room Air 06/23/16 15:39 Room Air 06/23/16 11:52 97.5 90 18 130/73 96 Room Air 06/23/16 10:30 Room Air 21 06/23/16 10:30 Room Air 06/23/16 08:32 133/73 06/23/16 08:32 73 133/73 06/23/16 08:00 98.0 94 18 134/80 100 Room Air 06/23/16 07:33 73 18 100 Room Air 06/23/16 07:22 93 18 100 Room Air 21 06/23/16 04:00 97.3 93 18 133/73 92 Room Air 06/23/16 03:32 Room Air 06/23/16 03:32 Room Air 06/22/16 23:39 Room Air 21 06/22/16 23:38 Room Air Height (Feet): 5 Weight (Pounds): 120 Laboratory Tests Test 06/23/16 05:30 White Blood Count 7.4 K/UL (4.8-10.8) Red Blood Count 4.32 M/UL (4.20-5.40) Hemoglobin 12.3 G/DL (12.0-16.0) Hematocrit 39.2 % (37.0-47.0) Mean Corpuscular Volume 91 FL (80-99) Mean Corpuscular Hemoglobin 28.5 PG (27.0-31.0) Mean Corpuscular Hemoglobin Concent 31.4 G/DL (32.0-36.0) L Red Cell Distribution Width 18.0 % (11.6-14.8) H Platelet Count 210 K/UL (150-450) Mean Platelet Volume 6.2 FL (6.5-10.1) L Neutrophils (%) (Auto) 80.1 % (45.0-75.0) H Lymphocytes (%) (Auto) 9.8 % (20.0-45.0) L Monocytes (%) (Auto) 6.9 % (1.0-10.0) Eosinophils (%) (Auto) 1.9 % (0.0-3.0) Basophils (%) (Auto) 1.3 % (0.0-2.0) Sodium Level 135 mEQ/L (135-145) Potassium Level 3.5 mEQ/L (3.4-4.9) Chloride Level 95 mEQ/L (98-107) L Carbon Dioxide Level 24 mEQ/L (20-30) Anion Gap 16 (5-15) H Blood Urea Nitrogen 17 mg/dL (7-23) Creatinine 1.1 mg/dL (0.5-0.9) H Estimat Glomerular Filtration Rate 50.7 mL/min (>60) Glucose Level 88 mg/dL (74-106) Calcium Level 7.9 mg/dL (8.6-10.2) L Total Bilirubin 1.1 mg/dL (0.0-1.2) Direct Bilirubin 0.4 mg/dL (0.1-0.3) H Aspartate Amino Transf (AST/SGOT) 28 U/L (5-40) Alanine Aminotransferase (ALT/SGPT) 16 U/L (3-33) Alkaline Phosphatase 102 U/L (35-104) Total Protein 5.7 g/dL (6.6-8.7) L Albumin 2.2 g/dL (3.5-5.2) L Globulin 3.5 g/dL Albumin/Globulin Ratio 0.6 (1.0-2.7) L Current Medications Medications (Trade) Dose Ordered Sig/Fela Route PRN Reason Start Time Stop Time Status Last Admin Dose Admin Acetaminophen (Tylenol) 650 mg Q4H PRN ORAL fever 06/20/16 18:00 07/20/16 17:59 Al Hydroxide/Mg Hydroxide (Mylanta II) 30 ml Q6H PRN ORAL dyspepsia 06/20/16 18:00 07/20/16 17:59 Albuterol/ Ipratropium (DuoNeb 0.5-3(2.5)mg/3ml) 3 ml Q4HRT HHN 06/21/16 19:00 06/26/16 18:59 06/23/16 22:00 Carvedilol (Coreg) 3.125 mg EVERY 12 HOURS ORAL 06/21/16 21:00 07/21/16 20:59 06/23/16 21:15 Dextrose (Dextrose 50%) STAT PRN IV Hypoglycemia 06/20/16 18:00 07/20/16 17:59 Diphenhydramine HCl (Benadryl) 25 mg Q6H PRN ORAL Itching/Pruritis 06/20/16 18:00 07/20/16 17:59 Furosemide (Lasix) 40 mg DAILY ORAL 06/21/16 09:00 07/21/16 08:59 06/21/16 08:41 Guaifenesin (Robitussin) 100 mg Q4H PRN ORAL For Cough 06/21/16 17:00 07/21/16 16:59 06/22/16 05:23 Iron Sucrose/ Sodium Chloride (Venofer/Sodium Chloride) 60 ml @ 240 mls/hr BEDTIME IVPB 06/22/16 21:00 06/24/16 21:14 06/23/16 21:12 Lactulose (Cephulac) 20 gm EVERY 8 HOURS ORAL 06/20/16 22:00 07/20/16 21:59 06/22/16 22:29 Levothyroxine Sodium (Synthroid) 50 mcg DAILY@0630 ORAL 06/21/16 06:30 07/21/16 06:29 06/22/16 05:57 Lisinopril (Zestril) 10 mg DAILY ORAL 06/22/16 09:00 07/22/16 08:59 Lorazepam 2 mg 2 mg Q6H PRN IM For Anxiety 06/22/16 09:30 06/29/16 09:29 06/23/16 10:46 Morphine Sulfate (Morphine Sulfate) 2 mg EVERY 4 HOURS PRN IVP Severe Pain (Pain Scale 7-10) 06/20/16 18:00 06/27/16 17:59 Nitroglycerin (Ntg) 0.4 mg Q5M X 3 DOSES PRN SL Prn Chest Pain 06/20/16 18:00 07/20/16 17:59 Ondansetron HCl (Zofran) 4 mg Q6H PRN IVP Nausea & Vomiting 06/20/16 18:00 07/20/16 17:59 Polyethylene Glycol (Miralax) 17 gm HSPRN PRN ORAL Constipation 06/20/16 21:00 07/20/16 20:59 Quetiapine Fumarate (SEROquel) 50 mg THREE TIMES A DAY ORAL 06/20/16 18:00 07/20/16 17:59 06/23/16 08:28 Spironolactone (Aldactone) 25 mg DAILY ORAL 06/21/16 09:00 07/21/16 08:59 06/21/16 08:41 Temazepam (Restoril) 15 mg HSPRN PRN ORAL Insomnia 06/20/16 21:00 06/27/16 20:59 06/22/16 23:08 JULIAN RAY Jun 23, 2016 23:37
[2016-06-24 00:25] VITALS: BP 124/71
[2016-06-24] MEDS: guaiFENesin 100mg/5ml Liq ud ORAL PRN (02:57)
[2016-06-24] MEDS: DuoNeb 0.5-3(2.5)mg/3ml neb HHN SCH ×6 (03:06→22:58)
[2016-06-24 04:00] VITALS: BP 124/72
[2016-06-24] MEDS: Lactulose 20gm/30ml UDC ORAL SCH ×3 (06:00→22:05)
[2016-06-24 07:25] LABS: BASOPHILS % (AUTO) 1.1 % (0.0-2.0); EOSINOPHILS % (AUTO) 1.8 % (0.0-3.0); LYMPHOCYTES % (AUTO) 12.5 % (20.0-45.0); MEAN CORPUSCULAR HEMOGLOBIN 27.9 PG (27.0-31.0); MEAN CORPUSCULAR HGB CONC 30.8 G/DL (32.0-36.0); MEAN CORPUSCULAR VOLUME 90 FL (80-99); MEAN PLATELET VOLUME 6.1 FL (6.5-10.1); MONOCYTES % (AUTO) 7.3 % (1.0-10.0); NEUTROPHILS % (AUTO) 77.3 % (45.0-75.0); PLATELET COUNT 196 K/UL (150-450); RED BLOOD COUNT 4.49 M/UL (4.20-5.40); RED CELL DISTRIBUTION WIDTH 17.9 % (11.6-14.8)
[2016-06-24 07:40] LABS: CREATININE 1.3 mg/dL (0.5-0.9); GLOMERULAR FILTRATION RATE 41.8 mL/min (>60); POTASSIUM 3.6 mEQ/L (3.4-4.9)
[2016-06-24 07:49] VITALS: BP 132/97
[2016-06-24] MEDS: Spironolactone 25mg tab ORAL SCH (10:11)
[2016-06-24] MEDS: Furosemide 40mg tab ORAL SCH (10:11)
[2016-06-24] MEDS: Lisinopril 10mg tab ORAL SCH (10:11)
--- NOTE | 2016-06-24 10:27 | General Progress Note ---
Progress Note Progress Note pt needs paracentesis. she is confused and can't sign her consents. She doesn' t have any family members to sign the consent. It is very important for her medical treatment that she gets this Paracentesis GLEN SAMAYOA Jun 24, 2016 10:27
--- NOTE | 2016-06-24 10:49 | Cardiac Electrophysiology PN ---
Assessment/Plan Assessment/Plan 1. Congestive heart failure with EF 20-25%. Continue Lasix 40 mg daily, Aldactone 25 mg daily, lisinopril 10 and Coreg 3.125 bid.Not stable for stress test or cardiac cath in view of her psychosis 2. Hypertension. Continue current heart failure medications. 3. Hepatic failure and ascites. Paracentesis today by radiology.Follow up GI. 4. Hyponatremia secondary to volume overload secondary to CHF and cirrhosis. 5. Agitation and noncompliance. JESSE RN Subjective Subjective Not NPO any more. Getting ready for breakfast. RN and sitter at bedside. Off tele.Scheduled for paracentesis today. Objective Last 24 Hour Vital Signs Date Time Temp Pulse Resp B/P Pulse Ox O2 Delivery O2 Flow Rate FiO2 06/24/16 10:11 132/97 06/24/16 10:11 89 132/97 06/24/16 08:02 89 16 99 Room Air 06/24/16 07:49 98.6 88 20 132/97 98 Room Air 06/24/16 04:00 97.5 90 17 124/72 94 Room Air 06/24/16 03:09 90 18 100 Room Air 21 06/24/16 03:08 91 18 98 Room Air 21 06/24/16 00:25 97.4 78 18 124/71 94 Room Air 06/23/16 22:08 102 18 100 Room Air 21 06/23/16 22:00 101 18 98 Room Air 21 06/23/16 21:15 98 131/94 06/23/16 20:19 97.5 98 19 131/94 94 Room Air 06/23/16 18:55 103 18 100 Room Air 06/23/16 18:50 102 18 98 Room Air 21 06/23/16 16:37 97.5 90 18 130/73 96 Room Air 21 06/23/16 15:39 Room Air 06/23/16 15:39 Room Air 06/23/16 11:52 97.5 90 18 130/73 96 Room Air Intake and Output 06/23/16 06/24/16 19:00 07:00 Intake Total 360 ml 60 ml Balance 360 ml 60 ml Intake Oral 360 ml IV Total 60 ml # Voids 3 Laboratory Tests Test 06/24/16 04:50 White Blood Count 7.0 K/UL (4.8-10.8) Red Blood Count 4.49 M/UL (4.20-5.40) Hemoglobin 12.5 G/DL (12.0-16.0) Hematocrit 40.6 % (37.0-47.0) Mean Corpuscular Volume 90 FL (80-99) Mean Corpuscular Hemoglobin 27.9 PG (27.0-31.0) Mean Corpuscular Hemoglobin Concent 30.8 G/DL (32.0-36.0) L Red Cell Distribution Width 17.9 % (11.6-14.8) H Platelet Count 196 K/UL (150-450) Mean Platelet Volume 6.1 FL (6.5-10.1) L Neutrophils (%) (Auto) 77.3 % (45.0-75.0) H Lymphocytes (%) (Auto) 12.5 % (20.0-45.0) L Monocytes (%) (Auto) 7.3 % (1.0-10.0) Eosinophils (%) (Auto) 1.8 % (0.0-3.0) Basophils (%) (Auto) 1.1 % (0.0-2.0) Sodium Level 138 mEQ/L (135-145) Potassium Level 3.6 mEQ/L (3.4-4.9) Chloride Level 98 mEQ/L (98-107) Carbon Dioxide Level 25 mEQ/L (20-30) Anion Gap 15 (5-15) Blood Urea Nitrogen 20 mg/dL (7-23) Creatinine 1.3 mg/dL (0.5-0.9) H Estimat Glomerular Filtration Rate 41.8 mL/min (>60) Glucose Level 105 mg/dL (74-106) Calcium Level 8.0 mg/dL (8.6-10.2) L Objective HEAD AND NECK: Mild JVD. LUNGS: Decreased breath sounds and wheezing. CARDIOVASCULAR: Shows regular S1 and S2 with no gallop or murmur. ABDOMEN: Soft with ascites. EXTREMITIES: A 1+ pitting edema. GARETH KAPOOR Jun 24, 2016 10:49
--- NOTE | 2016-06-24 11:16 | GI Progress Note ---
Assessment/Plan Problems: (1) End stage liver disease ICD Codes: K72.90 - Hepatic failure, unspecified without coma SNOMED: 769637193 (2) Ascites ICD Codes: R18.8 - Other ascites SNOMED: 724519482 (3) Elevated CEA ICD Codes: R97.0 - Elevated carcinoembryonic antigen [CEA] SNOMED: 38529691, 683213326 (4) Dementia ICD Codes: F03.90 - Unspecified dementia without behavioral disturbance SNOMED: 94578253 (5) Anemia ICD Codes: D64.9 - Anemia, unspecified SNOMED: 694991128 (6) Iron deficiency ICD Codes: E61.1 - Iron deficiency SNOMED: 75000024 Status: unchanged Status Narrative Discussed with Dr. Kiser. Assessment/Plan AFP >> WNL iron deficient >> venofer fu abdominal U/S, taken fu paracentesis >> r/o SBP >> scheduled for today ammonia levels, WNL >> cont lactulose + Xifaxan low sodium diet GI prophylaxis, H2 fu labs Subjective Subjective limited Objective Last 24 Hour Vital Signs Date Time Temp Pulse Resp B/P Pulse Ox O2 Delivery O2 Flow Rate FiO2 06/24/16 10:11 132/97 06/24/16 10:11 89 132/97 06/24/16 08:02 89 16 99 Room Air 06/24/16 07:49 98.6 88 20 132/97 98 Room Air 06/24/16 04:00 97.5 90 17 124/72 94 Room Air 06/24/16 03:09 90 18 100 Room Air 06/24/16 03:08 91 18 98 Room Air 06/24/16 00:25 97.4 78 18 124/71 94 Room Air 06/23/16 22:08 102 18 100 Room Air 06/23/16 22:00 101 18 98 Room Air 06/23/16 21:15 98 131/94 06/23/16 20:19 97.5 98 19 131/94 94 Room Air 06/23/16 18:55 103 18 100 Room Air 06/23/16 18:50 102 18 98 Room Air 06/23/16 16:37 97.5 90 18 130/73 96 Room Air 06/23/16 15:39 Room Air 06/23/16 15:39 Room Air 06/23/16 11:52 97.5 90 18 130/73 96 Room Air Intake and Output 06/23/16 06/24/16 19:00 07:00 Intake Total 360 ml 60 ml Balance 360 ml 60 ml Intake Oral 360 ml IV Total 60 ml # Voids 3 Laboratory Tests Test 06/24/16 04:50 White Blood Count 7.0 K/UL (4.8-10.8) Red Blood Count 4.49 M/UL (4.20-5.40) Hemoglobin 12.5 G/DL (12.0-16.0) Hematocrit 40.6 % (37.0-47.0) Mean Corpuscular Volume 90 FL (80-99) Mean Corpuscular Hemoglobin 27.9 PG (27.0-31.0) Mean Corpuscular Hemoglobin Concent 30.8 G/DL (32.0-36.0) L Red Cell Distribution Width 17.9 % (11.6-14.8) H Platelet Count 196 K/UL (150-450) Mean Platelet Volume 6.1 FL (6.5-10.1) L Neutrophils (%) (Auto) 77.3 % (45.0-75.0) H Lymphocytes (%) (Auto) 12.5 % (20.0-45.0) L Monocytes (%) (Auto) 7.3 % (1.0-10.0) Eosinophils (%) (Auto) 1.8 % (0.0-3.0) Basophils (%) (Auto) 1.1 % (0.0-2.0) Sodium Level 138 mEQ/L (135-145) Potassium Level 3.6 mEQ/L (3.4-4.9) Chloride Level 98 mEQ/L (98-107) Carbon Dioxide Level 25 mEQ/L (20-30) Anion Gap 15 (5-15) Blood Urea Nitrogen 20 mg/dL (7-23) Creatinine 1.3 mg/dL (0.5-0.9) H Estimat Glomerular Filtration Rate 41.8 mL/min (>60) Glucose Level 105 mg/dL (74-106) Calcium Level 8.0 mg/dL (8.6-10.2) L Height (Feet): 5 Weight (Pounds): 122 General Appearance: no apparent distress, alert, confused Cardiovascular: normal rate Respiratory/Chest: no respiratory distress Abdominal Exam: ascites Greta David N.P. Jun 24, 2016 11:16
--- NOTE | 2016-06-24 11:51 | General Progress Note ---
Assessment/Plan Problem List: (1) HTN (hypertension) ICD Codes: I10 - Essential (primary) hypertension SNOMED: 32536505 (2) Dementia ICD Codes: F03.90 - Unspecified dementia without behavioral disturbance SNOMED: 77688603 (3) CHF (congestive heart failure) ICD Codes: I50.9 - Heart failure, unspecified SNOMED: 03549295 (4) Ascites ICD Codes: R18.8 - Other ascites SNOMED: 006118974 (5) Dyspnea ICD Codes: R06.00 - Dyspnea, unspecified SNOMED: 186889407 (6) End stage liver disease ICD Codes: K72.90 - Hepatic failure, unspecified without coma SNOMED: 568000110 (7) CKD (chronic kidney disease) ICD Codes: N18.9 - Chronic kidney disease, unspecified SNOMED: 776254856 Status: stable, progressing, tolerating diet Assessment/Plan ot pt diet cbc bmp am pericentesis dc plan Subjective Constitutional: Reports: weakness Allergies: Coded Allergies: No Known Allergies (Unverified , 01/02/16) All Systems: reviewed and negative except above Subjective sitting calm Objective Last 24 Hour Vital Signs Date Time Temp Pulse Resp B/P Pulse Ox O2 Delivery O2 Flow Rate FiO2 06/24/16 10:11 132/97 06/24/16 10:11 89 132/97 06/24/16 08:02 89 16 99 Room Air 06/24/16 07:49 98.6 88 20 132/97 98 Room Air 06/24/16 04:00 97.5 90 17 124/72 94 Room Air 06/24/16 03:09 90 18 100 Room Air 06/24/16 03:08 91 18 98 Room Air 06/24/16 00:25 97.4 78 18 124/71 94 Room Air 06/23/16 22:08 102 18 100 Room Air 06/23/16 22:00 101 18 98 Room Air 06/23/16 21:15 98 131/94 06/23/16 20:19 97.5 98 19 131/94 94 Room Air 06/23/16 18:55 103 18 100 Room Air 06/23/16 18:50 102 18 98 Room Air 06/23/16 16:37 97.5 90 18 130/73 96 Room Air 06/23/16 15:39 Room Air 06/23/16 15:39 Room Air 06/23/16 11:52 97.5 90 18 130/73 96 Room Air Intake and Output 06/23/16 06/24/16 19:00 07:00 Intake Total 360 ml 60 ml Balance 360 ml 60 ml Intake Oral 360 ml IV Total 60 ml # Voids 3 Laboratory Tests 06/24/16 04:50: White Blood Count 7.0, Red Blood Count 4.49, Hemoglobin 12.5, Hematocrit 40.6, Mean Corpuscular Volume 90, Mean Corpuscular Hemoglobin 27.9, Mean Corpuscular Hemoglobin Concent 30.8L, Red Cell Distribution Width 17.9H, Platelet Count 196 , Mean Platelet Volume 6.1L, Neutrophils (%) (Auto) 77.3H, Lymphocytes (%) (Auto ) 12.5L, Monocytes (%) (Auto) 7.3, Eosinophils (%) (Auto) 1.8, Basophils (%) ( Auto) 1.1, Sodium Level 138, Potassium Level 3.6, Chloride Level 98, Carbon Dioxide Level 25, Anion Gap 15, Blood Urea Nitrogen 20, Creatinine 1.3H, Estimat Glomerular Filtration Rate 41.8, Glucose Level 105, Calcium Level 8.0L 06/24/16 11:35: Prothrombin Time [Pending], Prothromb Time International Ratio [Pending] Height (Feet): 5 Weight (Pounds): 122 General Appearance: confused EENT: normal ENT inspection Neck: normal alignment Cardiovascular: normal peripheral pulses, normal rate, regular rhythm Respiratory/Chest: chest wall non-tender, lungs clear, normal breath sounds Abdomen: normal bowel sounds, non tender, hypoactive bowel sounds, distended Extremities: normal inspection Edema: 1+ Arm (L), 1+ Arm (R), 1+ Leg (L), 1+ Leg (R), 1+ Pedal (L), 1+ Pedal ( R), 1+ Generalized Neurologic: motor weakness Skin: normal pigmentation, warm/dry CHANDANA COVARRUBIAS Jun 24, 2016 11:51
[2016-06-24 11:54] VITALS: BP 130/99
[2016-06-24 12:00] LABS: INR 1.2 (0.9-1.1)
[2016-06-24] MEDS: LORazepam Inj 2mg/ml 1ml IM PRN (14:35)
[2016-06-24] MEDS ORDERED: NS 275ml ONE (15:43)
[2016-06-24 16:01] VITALS: BP 143/90
--- NOTE | 2016-06-24 16:51 | Pulmonology Progress Note ---
Assessment/Plan Problems: (1) Ascites (2) End stage liver disease (3) CKD (chronic kidney disease) (4) Elevated CEA Assessment/Plan paracenthesis optimize cardiac meds EF is 20% consider comfort care, considering chronic failure of two major organs, live and heart. Subjective ROS Limited/Unobtainable: Yes Interval Events: paracentesis delyaed, becuase she got agitated Allergies: Coded Allergies: No Known Allergies (Unverified , 01/02/16) Objective Last 24 Hour Vital Signs Date Time Temp Pulse Resp B/P Pulse Ox O2 Delivery O2 Flow Rate FiO2 06/24/16 16:01 98.6 101 20 143/90 95 Room Air 06/24/16 12:32 91 17 100 Room Air 06/24/16 12:10 95 18 100 Room Air 21 06/24/16 11:58 93 15 99 Room Air 21 06/24/16 11:54 98.4 95 20 130/99 94 Room Air 06/24/16 10:11 132/97 06/24/16 10:11 89 132/97 06/24/16 08:02 89 16 99 Room Air 06/24/16 07:49 98.6 88 20 132/97 98 Room Air 06/24/16 04:00 97.5 90 17 124/72 94 Room Air 06/24/16 03:09 90 18 100 Room Air 21 06/24/16 03:08 91 18 98 Room Air 21 06/24/16 00:25 97.4 78 18 124/71 94 Room Air 06/23/16 22:08 102 18 100 Room Air 21 06/23/16 22:00 101 18 98 Room Air 21 06/23/16 21:15 98 131/94 06/23/16 20:19 97.5 98 19 131/94 94 Room Air 06/23/16 18:55 103 18 100 Room Air 06/23/16 18:50 102 18 98 Room Air 21 Intake and Output 06/23/16 06/24/16 19:00 07:00 Intake Total 360 ml 60 ml Balance 360 ml 60 ml Intake Oral 360 ml IV Total 60 ml # Voids 3 Objective General Appearance: cachetic Lines, tubes and drains: peripheral, HEENT: normocephalic, atraumatic Neck: non-tender, normal alignment Respiratory/Chest: chest wall non-tender, lungs clear Cardiovascular/Chest: normal peripheral pulses, normal rate Abdomen: normal bowel sounds, distended Genitourinary/Rectal: normal genital exam Extremities: normal range of motion Skin Exam: normal pigmentation Laboratory Tests 06/24/16 04:50: White Blood Count 7.0, Red Blood Count 4.49, Hemoglobin 12.5, Hematocrit 40.6, Mean Corpuscular Volume 90, Mean Corpuscular Hemoglobin 27.9, Mean Corpuscular Hemoglobin Concent 30.8L, Red Cell Distribution Width 17.9H, Platelet Count 196 , Mean Platelet Volume 6.1L, Neutrophils (%) (Auto) 77.3H, Lymphocytes (%) (Auto ) 12.5L, Monocytes (%) (Auto) 7.3, Eosinophils (%) (Auto) 1.8, Basophils (%) ( Auto) 1.1, Sodium Level 138, Potassium Level 3.6, Chloride Level 98, Carbon Dioxide Level 25, Anion Gap 15, Blood Urea Nitrogen 20, Creatinine 1.3H, Estimat Glomerular Filtration Rate 41.8, Glucose Level 105, Calcium Level 8.0L 06/24/16 11:35: Prothrombin Time 12.0H, Prothromb Time International Ratio 1.2H Current Medications Medications (Trade) Dose Ordered Sig/Fela Route PRN Reason Start Time Stop Time Status Last Admin Dose Admin Acetaminophen (Tylenol) 650 mg Q4H PRN ORAL fever 06/20/16 18:00 07/20/16 17:59 Al Hydroxide/Mg Hydroxide (Mylanta II) 30 ml Q6H PRN ORAL dyspepsia 06/20/16 18:00 07/20/16 17:59 Albuterol/ Ipratropium (DuoNeb 0.5-3(2.5)mg/3ml) 3 ml Q4HRT HHN 06/21/16 19:00 06/26/16 18:59 06/24/16 11:58 Carvedilol (Coreg) 3.125 mg EVERY 12 HOURS ORAL 06/21/16 21:00 07/21/16 20:59 06/24/16 10:11 Dextrose (Dextrose 50%) STAT PRN IV Hypoglycemia 06/20/16 18:00 07/20/16 17:59 Diphenhydramine HCl (Benadryl) 25 mg Q6H PRN ORAL Itching/Pruritis 06/20/16 18:00 07/20/16 17:59 Furosemide (Lasix) 40 mg DAILY ORAL 06/21/16 09:00 07/21/16 08:59 06/24/16 10:11 Guaifenesin (Robitussin) 100 mg Q4H PRN ORAL For Cough 06/21/16 17:00 07/21/16 16:59 06/24/16 02:57 Iron Sucrose/ Sodium Chloride (Venofer/Sodium Chloride) 60 ml @ 240 mls/hr BEDTIME IVPB 06/22/16 21:00 06/24/16 21:14 06/23/16 21:12 Lactulose (Cephulac) 20 gm EVERY 8 HOURS ORAL 06/20/16 22:00 07/20/16 21:59 06/24/16 13:43 Levothyroxine Sodium (Synthroid) 50 mcg DAILY@0630 ORAL 06/21/16 06:30 07/21/16 06:29 06/22/16 05:57 Lisinopril (Zestril) 10 mg DAILY ORAL 06/22/16 09:00 07/22/16 08:59 06/24/16 10:11 Lorazepam (Ativan 2mg/ml 1ml) 2 mg ONCE ONCE IV 06/25/16 06:00 06/25/16 06:01 UNV Lorazepam 2 mg 2 mg Q6H PRN IM For Anxiety 06/22/16 09:30 06/29/16 09:29 06/24/16 14:35 Morphine Sulfate (Morphine Sulfate) 2 mg EVERY 4 HOURS PRN IVP Severe Pain (Pain Scale 7-10) 06/20/16 18:00 06/27/16 17:59 Nitroglycerin (Ntg) 0.4 mg Q5M X 3 DOSES PRN SL Prn Chest Pain 06/20/16 18:00 07/20/16 17:59 Ondansetron HCl (Zofran) 4 mg Q6H PRN IVP Nausea & Vomiting 06/20/16 18:00 07/20/16 17:59 Polyethylene Glycol (Miralax) 17 gm HSPRN PRN ORAL Constipation 06/20/16 21:00 07/20/16 20:59 Quetiapine Fumarate (SEROquel) 50 mg THREE TIMES A DAY ORAL 06/20/16 18:00 07/20/16 17:59 06/24/16 13:43 Spironolactone (Aldactone) 25 mg DAILY ORAL 06/21/16 09:00 07/21/16 08:59 06/24/16 10:11 Temazepam (Restoril) 15 mg HSPRN PRN ORAL Insomnia 06/20/16 21:00 06/27/16 20:59 06/22/16 23:08 GLNE SAMAYOA Jun 24, 2016 16:51
[2016-06-24 20:00] VITALS: BP 123/101
[2016-06-24] MEDS: Iron Sucrose 100 MG in NS 55 ML IVPB SCH (21:03)
--- NOTE | 2016-06-24 21:45 | Infectious Diseases Prog Note ---
Assessment/Plan Problems: (1) MRSA colonization Assessment & Plan: No evidence of active infection. OK to proceed with paracentesis with proper consent from ID perspective. (2) Ascites Assessment & Plan: Probably can benefit from paracentesis for symptomatic relieve but unclear who can sign the consent. (3) End stage liver disease Subjective Allergies: Coded Allergies: No Known Allergies (Unverified , 01/02/16) Objective Vital Signs Last 24 Hour Vital Signs Date Time Temp Pulse Resp B/P Pulse Ox O2 Delivery O2 Flow Rate FiO2 06/24/16 21:00 95 123/101 06/24/16 20:00 97.3 95 20 123/101 95 Room Air 06/24/16 19:16 85 18 96 Room Air 06/24/16 19:16 82 18 100 Room Air 06/24/16 16:01 98.6 101 20 143/90 95 Room Air 06/24/16 12:32 91 17 100 Room Air 21 06/24/16 12:10 95 18 100 Room Air 06/24/16 11:58 93 15 99 Room Air 06/24/16 11:54 98.4 95 20 130/99 94 Room Air 06/24/16 10:11 132/97 06/24/16 10:11 89 132/97 06/24/16 08:02 89 16 99 Room Air 06/24/16 07:49 98.6 88 20 132/97 98 Room Air 06/24/16 04:00 97.5 90 17 124/72 94 Room Air 06/24/16 03:09 90 18 100 Room Air 06/24/16 03:08 91 18 98 Room Air 06/24/16 00:25 97.4 78 18 124/71 94 Room Air 06/23/16 22:08 102 18 100 Room Air 06/23/16 22:00 101 18 98 Room Air 21 Height (Feet): 5 Weight (Pounds): 122 Laboratory Tests Test 06/24/16 04:50 06/24/16 11:35 White Blood Count 7.0 K/UL (4.8-10.8) Red Blood Count 4.49 M/UL (4.20-5.40) Hemoglobin 12.5 G/DL (12.0-16.0) Hematocrit 40.6 % (37.0-47.0) Mean Corpuscular Volume 90 FL (80-99) Mean Corpuscular Hemoglobin 27.9 PG (27.0-31.0) Mean Corpuscular Hemoglobin Concent 30.8 G/DL (32.0-36.0) L Red Cell Distribution Width 17.9 % (11.6-14.8) H Platelet Count 196 K/UL (150-450) Mean Platelet Volume 6.1 FL (6.5-10.1) L Neutrophils (%) (Auto) 77.3 % (45.0-75.0) H Lymphocytes (%) (Auto) 12.5 % (20.0-45.0) L Monocytes (%) (Auto) 7.3 % (1.0-10.0) Eosinophils (%) (Auto) 1.8 % (0.0-3.0) Basophils (%) (Auto) 1.1 % (0.0-2.0) Sodium Level 138 mEQ/L (135-145) Potassium Level 3.6 mEQ/L (3.4-4.9) Chloride Level 98 mEQ/L (98-107) Carbon Dioxide Level 25 mEQ/L (20-30) Anion Gap 15 (5-15) Blood Urea Nitrogen 20 mg/dL (7-23) Creatinine 1.3 mg/dL (0.5-0.9) H Estimat Glomerular Filtration Rate 41.8 mL/min (>60) Glucose Level 105 mg/dL (74-106) Calcium Level 8.0 mg/dL (8.6-10.2) L Prothrombin Time 12.0 SEC (9.30-11.50) H Prothromb Time International Ratio 1.2 (0.9-1.1) H Current Medications Medications (Trade) Dose Ordered Sig/Fela Route PRN Reason Start Time Stop Time Status Last Admin Dose Admin Acetaminophen (Tylenol) 650 mg Q4H PRN ORAL fever 06/20/16 18:00 07/20/16 17:59 Al Hydroxide/Mg Hydroxide (Mylanta II) 30 ml Q6H PRN ORAL dyspepsia 06/20/16 18:00 07/20/16 17:59 Albuterol/ Ipratropium (DuoNeb 0.5-3(2.5)mg/3ml) 3 ml Q4HRT HHN 06/21/16 19:00 06/26/16 18:59 06/24/16 19:15 Carvedilol (Coreg) 3.125 mg EVERY 12 HOURS ORAL 06/21/16 21:00 07/21/16 20:59 06/24/16 10:11 Dextrose (Dextrose 50%) STAT PRN IV Hypoglycemia 06/20/16 18:00 07/20/16 17:59 Diphenhydramine HCl (Benadryl) 25 mg Q6H PRN ORAL Itching/Pruritis 06/20/16 18:00 07/20/16 17:59 Furosemide (Lasix) 40 mg DAILY ORAL 06/21/16 09:00 07/21/16 08:59 06/24/16 10:11 Guaifenesin (Robitussin) 100 mg Q4H PRN ORAL For Cough 06/21/16 17:00 07/21/16 16:59 06/24/16 02:57 Lactulose (Cephulac) 20 gm EVERY 8 HOURS ORAL 06/20/16 22:00 07/20/16 21:59 06/24/16 13:43 Levothyroxine Sodium (Synthroid) 50 mcg DAILY@0630 ORAL 06/21/16 06:30 07/21/16 06:29 06/22/16 05:57 Lisinopril (Zestril) 10 mg DAILY ORAL 06/22/16 09:00 07/22/16 08:59 06/24/16 10:11 Lorazepam (Ativan 2mg/ml 1ml) 2 mg ONCE PRN IV ONCE PRIOR TO THORACENTESIS 06/25/16 06:00 06/25/16 23:59 Lorazepam (Ativan 2mg/ml 1ml) 2 mg Q6H PRN IM For Anxiety 06/22/16 09:30 06/29/16 09:29 06/24/16 14:35 Morphine Sulfate (Morphine Sulfate) 2 mg EVERY 4 HOURS PRN IVP Severe Pain (Pain Scale 7-10) 06/20/16 18:00 06/27/16 17:59 Nitroglycerin (Ntg) 0.4 mg Q5M X 3 DOSES PRN SL Prn Chest Pain 06/20/16 18:00 07/20/16 17:59 Ondansetron HCl (Zofran) 4 mg Q6H PRN IVP Nausea & Vomiting 06/20/16 18:00 07/20/16 17:59 Polyethylene Glycol (Miralax) 17 gm HSPRN PRN ORAL Constipation 06/20/16 21:00 07/20/16 20:59 Quetiapine Fumarate (SEROquel) 50 mg THREE TIMES A DAY ORAL 06/20/16 18:00 07/20/16 17:59 06/24/16 13:43 Spironolactone (Aldactone) 25 mg DAILY ORAL 06/21/16 09:00 07/21/16 08:59 06/24/16 10:11 Temazepam (Restoril) 15 mg HSPRN PRN ORAL Insomnia 06/20/16 21:00 06/27/16 20:59 06/22/16 23:08 JULIAN RAY Jun 24, 2016 21:45
--- NOTE | 2016-06-24 22:25 | Nephrology Progress Note ---
Objective Objective Last 24 Hour Vital Signs Date Time Temp Pulse Resp B/P Pulse Ox O2 Delivery O2 Flow Rate FiO2 06/24/16 21:00 95 123/101 06/24/16 20:00 97.3 95 20 123/101 95 Room Air 06/24/16 19:16 85 18 96 Room Air 21 06/24/16 19:16 82 18 100 Room Air 21 06/24/16 16:01 98.6 101 20 143/90 95 Room Air 06/24/16 12:32 91 17 100 Room Air 21 06/24/16 12:10 95 18 100 Room Air 21 06/24/16 11:58 93 15 99 Room Air 21 06/24/16 11:54 98.4 95 20 130/99 94 Room Air 06/24/16 10:11 132/97 06/24/16 10:11 89 132/97 06/24/16 08:02 89 16 99 Room Air 21 06/24/16 07:49 98.6 88 20 132/97 98 Room Air 06/24/16 04:00 97.5 90 17 124/72 94 Room Air 06/24/16 03:09 90 18 100 Room Air 06/24/16 03:08 91 18 98 Room Air 06/24/16 00:25 97.4 78 18 124/71 94 Room Air Intake and Output 06/23/16 06/24/16 19:00 07:00 Intake Total 360 ml 60 ml Balance 360 ml 60 ml Intake Oral 360 ml IV Total 60 ml # Voids 3 Laboratory Tests 06/24/16 04:50: White Blood Count 7.0, Red Blood Count 4.49, Hemoglobin 12.5, Hematocrit 40.6, Mean Corpuscular Volume 90, Mean Corpuscular Hemoglobin 27.9, Mean Corpuscular Hemoglobin Concent 30.8L, Red Cell Distribution Width 17.9H, Platelet Count 196 , Mean Platelet Volume 6.1L, Neutrophils (%) (Auto) 77.3H, Lymphocytes (%) (Auto ) 12.5L, Monocytes (%) (Auto) 7.3, Eosinophils (%) (Auto) 1.8, Basophils (%) ( Auto) 1.1, Sodium Level 138, Potassium Level 3.6, Chloride Level 98, Carbon Dioxide Level 25, Anion Gap 15, Blood Urea Nitrogen 20, Creatinine 1.3H, Estimat Glomerular Filtration Rate 41.8, Glucose Level 105, Calcium Level 8.0L 06/24/16 11:35: Prothrombin Time 12.0H, Prothromb Time International Ratio 1.2H Height (Feet): 5 Weight (Pounds): 122 LEENA ASH Jun 24, 2016 22:25
[2016-06-25] VITALS: BP 127/91
[2016-06-25] MEDS: DuoNeb 0.5-3(2.5)mg/3ml neb HHN SCH ×3 (03:03→11:23)
[2016-06-25 04:00] VITALS: BP 110/82
[2016-06-25] MEDS: Lactulose 20gm/30ml UDC ORAL SCH ×2 (05:50→14:00)
[2016-06-25] MEDS ORDERED: LORazepam Inj 2mg/ml 1ml IV PRN (06:00)
[2016-06-25 07:53] VITALS: BP 118/81
--- NOTE | 2016-06-25 08:45 | General Progress Note ---
Assessment/Plan Problem List: (1) HTN (hypertension) ICD Codes: I10 - Essential (primary) hypertension SNOMED: 18874324 (2) Dementia ICD Codes: F03.90 - Unspecified dementia without behavioral disturbance SNOMED: 50477024 (3) CHF (congestive heart failure) ICD Codes: I50.9 - Heart failure, unspecified SNOMED: 36187593 (4) Ascites ICD Codes: R18.8 - Other ascites SNOMED: 531575381 (5) Dyspnea ICD Codes: R06.00 - Dyspnea, unspecified SNOMED: 473175973 (6) End stage liver disease ICD Codes: K72.90 - Hepatic failure, unspecified without coma SNOMED: 567379679 (7) CKD (chronic kidney disease) ICD Codes: N18.9 - Chronic kidney disease, unspecified SNOMED: 960375521 Status: stable, progressing, tolerating diet Assessment/Plan ot pt diet cbc bmp am pericentesis dc plan Subjective Constitutional: Reports: weakness Allergies: Coded Allergies: No Known Allergies (Unverified , 01/02/16) All Systems: reviewed and negative except above Subjective sleepy calm Objective Last 24 Hour Vital Signs Date Time Temp Pulse Resp B/P Pulse Ox O2 Delivery O2 Flow Rate FiO2 06/25/16 07:53 98.4 85 20 118/81 93 Room Air 06/25/16 07:34 93 20 100 Room Air 06/25/16 07:25 91 20 98 Room Air 06/25/16 04:00 98.9 86 20 110/82 95 Room Air 06/25/16 03:07 89 18 100 Room Air 06/25/16 03:05 90 18 95 Room Air 06/25/16 00:00 97.4 87 20 127/91 97 Room Air 06/24/16 23:00 78 18 96 Room Air 06/24/16 23:00 80 18 100 Room Air 06/24/16 21:00 95 123/101 06/24/16 20:00 97.3 95 20 123/101 95 Room Air 06/24/16 19:16 85 18 96 Room Air 06/24/16 19:16 82 18 100 Room Air 06/24/16 16:01 98.6 101 20 143/90 95 Room Air 06/24/16 12:32 91 17 100 Room Air 06/24/16 12:10 95 18 100 Room Air 21 06/24/16 11:58 93 15 99 Room Air 21 06/24/16 11:54 98.4 95 20 130/99 94 Room Air 06/24/16 10:11 132/97 06/24/16 10:11 89 132/97 Intake and Output 06/24/16 06/25/16 19:00 07:00 Intake Total 600 ml Balance 600 ml Intake Oral 600 ml # Voids 4 5 # Bowel Movements 2 Laboratory Tests 06/24/16 11:35: Prothrombin Time 12.0H, Prothromb Time International Ratio 1.2H Height (Feet): 5 Weight (Pounds): 123 General Appearance: lethargic EENT: normal ENT inspection Neck: normal alignment Cardiovascular: normal peripheral pulses, normal rate, regular rhythm Respiratory/Chest: chest wall non-tender, lungs clear, normal breath sounds Abdomen: normal bowel sounds, non tender, hypoactive bowel sounds, distended Extremities: normal inspection Edema: 1+ Arm (L), 1+ Arm (R), 1+ Leg (L), 1+ Leg (R), 1+ Pedal (L), 1+ Pedal ( R), 1+ Generalized Neurologic: motor weakness Skin: normal pigmentation, warm/dry CHANDANA COVARRUBIAS Jun 25, 2016 08:45
[2016-06-25] MEDS: Spironolactone 25mg tab ORAL SCH (09:00)
[2016-06-25] MEDS: Furosemide 40mg tab ORAL SCH (09:00)
[2016-06-25] MEDS: Lisinopril 10mg tab ORAL SCH (09:00)
--- NOTE | 2016-06-25 10:07 | Pulmonology Progress Note ---
Assessment/Plan Assessment/Plan ASSESSMENT end stage liver disease ascites dyspnea systolic heart failure cardiomyopathy HTN moderate pulmonary HTN elevated bili massive left hydro anasarca CKD elevated CEA dementia iron deficiency anemia noncompliance hypo Na likely 2 to volume overload due to CHF and cirrhosis PLAN OF CARE MS floor abd US noted paracentesis today AFP WNL, ammonia WNL, continue lactulose and Xifaxan, low Na diet hep panel negative GI follows ECHO with EF 20-25% and RVSP of 48, c/w moderate pulmonary HTN cardio follows continue medical management with diuretics (Lasix and Aldactone), BB and KIARA BP management with current regimen, optimize as needed per cardio- patient is not stable for stress test due to psychosis Venous Duplex BLE negative CXR with bullae vs bleb EARL O2 HHN prn monitor renal parameters, lytes, correct as need avoid nephrotoxic sitter at the bedside anemia workup with evidence of MONTRELL, on Venofer continue Seroquel ? psych eval as per PMD discretion case discussed and evaluated by supervising physician Subjective Allergies: Coded Allergies: No Known Allergies (Unverified , 01/02/16) Subjective intermittent abdominal pain, nausea, no vomiting sitter at [facility] bedside for safety paracentesis scheduled for today sitter at the bedside for safety Objective Last 24 Hour Vital Signs Date Time Temp Pulse Resp B/P Pulse Ox O2 Delivery O2 Flow Rate FiO2 06/25/16 07:53 98.4 85 20 118/81 93 Room Air 06/25/16 07:34 93 20 100 Room Air 06/25/16 07:25 91 20 98 Room Air 06/25/16 04:00 98.9 86 20 110/82 95 Room Air 06/25/16 03:07 89 18 100 Room Air 06/25/16 03:05 90 18 95 Room Air 06/25/16 00:00 97.4 87 20 127/91 97 Room Air 06/24/16 23:00 78 18 96 Room Air 06/24/16 23:00 80 18 100 Room Air 06/24/16 21:00 95 123/101 06/24/16 20:00 97.3 95 20 123/101 95 Room Air 06/24/16 19:16 85 18 96 Room Air 06/24/16 19:16 82 18 100 Room Air 06/24/16 16:01 98.6 101 20 143/90 95 Room Air 06/24/16 12:32 91 17 100 Room Air 21 06/24/16 12:10 95 18 100 Room Air 21 06/24/16 11:58 93 15 99 Room Air 21 06/24/16 11:54 98.4 95 20 130/99 94 Room Air 06/24/16 10:11 132/97 06/24/16 10:11 89 132/97 Intake and Output 06/24/16 06/25/16 19:00 07:00 Intake Total 600 ml Balance 600 ml Intake Oral 600 ml # Voids 4 5 # Bowel Movements 2 General Appearance: no acute distress HEENT: normocephalic, atraumatic, anicteric, mucous membranes moist Respiratory/Chest: lungs clear, no respiratory distress Cardiovascular: normal peripheral pulses, normal rate, regular rhythm Abdomen: normal bowel sounds, soft, non tender - distended Extremities: other - tarce edema BLE Neurologic/Psychiatric: abnormal gait - unsteady gait , alert, responsive Laboratory Tests 06/24/16 11:35: Prothrombin Time 12.0H, Prothromb Time International Ratio 1.2H Current Medications Medications (Trade) Dose Ordered Sig/Fela Route PRN Reason Start Time Stop Time Status Last Admin Dose Admin Acetaminophen (Tylenol) 650 mg Q4H PRN ORAL fever 06/20/16 18:00 07/20/16 17:59 Al Hydroxide/Mg Hydroxide (Mylanta II) 30 ml Q6H PRN ORAL dyspepsia 06/20/16 18:00 07/20/16 17:59 Albuterol/ Ipratropium (DuoNeb 0.5-3(2.5)mg/3ml) 3 ml Q4HRT HHN 06/21/16 19:00 06/26/16 18:59 06/25/16 07:25 Carvedilol (Coreg) 3.125 mg EVERY 12 HOURS ORAL 06/21/16 21:00 07/21/16 20:59 06/24/16 10:11 Dextrose (Dextrose 50%) STAT PRN IV Hypoglycemia 06/20/16 18:00 07/20/16 17:59 Diphenhydramine HCl (Benadryl) 25 mg Q6H PRN ORAL Itching/Pruritis 06/20/16 18:00 07/20/16 17:59 Furosemide (Lasix) 40 mg DAILY ORAL 06/21/16 09:00 07/21/16 08:59 06/24/16 10:11 Guaifenesin (Robitussin) 100 mg Q4H PRN ORAL For Cough 06/21/16 17:00 07/21/16 16:59 06/24/16 02:57 Lactulose (Cephulac) 20 gm EVERY 8 HOURS ORAL 06/20/16 22:00 07/20/16 21:59 06/25/16 05:50 Levothyroxine Sodium (Synthroid) 50 mcg DAILY@0630 ORAL 06/21/16 06:30 07/21/16 06:29 06/25/16 05:50 Lisinopril (Zestril) 10 mg DAILY ORAL 06/22/16 09:00 07/22/16 08:59 06/24/16 10:11 Lorazepam (Ativan 2mg/ml 1ml) 2 mg ONCE PRN IV ONCE PRIOR TO THORACENTESIS 06/25/16 06:00 06/25/16 23:59 Lorazepam (Ativan 2mg/ml 1ml) 2 mg Q6H PRN IM For Anxiety 06/22/16 09:30 06/29/16 09:29 06/24/16 14:35 Morphine Sulfate (Morphine Sulfate) 2 mg EVERY 4 HOURS PRN IVP Severe Pain (Pain Scale 7-10) 06/20/16 18:00 06/27/16 17:59 Nitroglycerin (Ntg) 0.4 mg Q5M X 3 DOSES PRN SL Prn Chest Pain 06/20/16 18:00 07/20/16 17:59 Ondansetron HCl (Zofran) 4 mg Q6H PRN IVP Nausea & Vomiting 06/20/16 18:00 07/20/16 17:59 Polyethylene Glycol (Miralax) 17 gm HSPRN PRN ORAL Constipation 06/20/16 21:00 07/20/16 20:59 Quetiapine Fumarate (SEROquel) 50 mg THREE TIMES A DAY ORAL 06/20/16 18:00 07/20/16 17:59 06/24/16 13:43 Spironolactone (Aldactone) 25 mg DAILY ORAL 06/21/16 09:00 07/21/16 08:59 4/27/17 10:11 Temazepam (Restoril) 15 mg HSPRN PRN ORAL Insomnia 06/20/16 21:00 06/27/16 20:59 06/22/16 23:08 Cristian ([facility])Janett NP Jun 25, 2016 10:07
[2016-06-25 10:56] LABS: BASOPHILS % (AUTO) 0.9 % (0.0-2.0); EOSINOPHILS % (AUTO) 1.7 % (0.0-3.0); LYMPHOCYTES % (AUTO) 9.9 % (20.0-45.0); MEAN CORPUSCULAR HGB CONC 30.7 G/DL (32.0-36.0); MEAN CORPUSCULAR VOLUME 91 FL (80-99); MEAN PLATELET VOLUME 5.8 FL (6.5-10.1); MONOCYTES % (AUTO) 7.3 % (1.0-10.0); NEUTROPHILS % (AUTO) 80.1 % (45.0-75.0); PLATELET COUNT 192 K/UL (150-450); RED CELL DISTRIBUTION WIDTH 18.6 % (11.6-14.8); WHITE BLOOD COUNT 6.8 K/UL (4.8-10.8)
[2016-06-25 11:17] LABS: CALCIUM 8.2 mg/dL (8.6-10.2); CREATININE 1.1 mg/dL (0.5-0.9); GLOMERULAR FILTRATION RATE 50.7 mL/min (>60); POTASSIUM 3.4 mEQ/L (3.4-4.9)
[2016-06-25 11:43] VITALS: BP 125/85
--- NOTE | 2016-06-25 12:27 | GI Progress Note ---
Assessment/Plan Problems: (1) End stage liver disease ICD Codes: K72.90 - Hepatic failure, unspecified without coma SNOMED: 245758443 (2) Ascites ICD Codes: R18.8 - Other ascites SNOMED: 747899790 (3) Elevated CEA ICD Codes: R97.0 - Elevated carcinoembryonic antigen [CEA] SNOMED: 52269745, 016926797 (4) Dementia ICD Codes: F03.90 - Unspecified dementia without behavioral disturbance SNOMED: 38892198 (5) Anemia ICD Codes: D64.9 - Anemia, unspecified SNOMED: 067956117 (6) Iron deficiency ICD Codes: E61.1 - Iron deficiency SNOMED: 07982537 Status: unchanged Status Narrative Discussed with Dr. Kiser. Assessment/Plan AFP >> WNL iron deficient >> venofer fu abdominal U/S, taken fu paracentesis >> r/o SBP >> scheduled for today ammonia levels, WNL >> cont lactulose + Xifaxan low sodium diet GI prophylaxis, H2 fu labs Subjective Gastrointestinal/Abdominal: Reports: abdomen distended, abdominal pain Subjective limited Objective Last 24 Hour Vital Signs Date Time Temp Pulse Resp B/P Pulse Ox O2 Delivery O2 Flow Rate FiO2 06/25/16 11:43 98.0 87 20 125/85 95 Room Air 06/25/16 07:53 98.4 85 20 118/81 93 Room Air 06/25/16 07:34 93 20 100 Room Air 06/25/16 07:25 91 20 98 Room Air 06/25/16 04:00 98.9 86 20 110/82 95 Room Air 06/25/16 03:07 89 18 100 Room Air 06/25/16 03:05 90 18 95 Room Air 06/25/16 00:00 97.4 87 20 127/91 97 Room Air 06/24/16 23:00 78 18 96 Room Air 06/24/16 23:00 80 18 100 Room Air 06/24/16 21:00 95 123/101 06/24/16 20:00 97.3 95 20 123/101 95 Room Air 06/24/16 19:16 85 18 96 Room Air 06/24/16 19:16 82 18 100 Room Air 06/24/16 16:01 98.6 101 20 143/90 95 Room Air 06/24/16 12:32 91 17 100 Room Air 21 Intake and Output 06/24/16 06/25/16 19:00 07:00 Intake Total 600 ml Balance 600 ml Intake Oral 600 ml # Voids 4 5 # Bowel Movements 2 Laboratory Tests Test 06/25/16 10:30 White Blood Count 6.8 K/UL (4.8-10.8) Red Blood Count 4.40 M/UL (4.20-5.40) Hemoglobin 12.3 G/DL (12.0-16.0) Hematocrit 40.2 % (37.0-47.0) Mean Corpuscular Volume 91 FL (80-99) Mean Corpuscular Hemoglobin 28.0 PG (27.0-31.0) Mean Corpuscular Hemoglobin Concent 30.7 G/DL (32.0-36.0) L Red Cell Distribution Width 18.6 % (11.6-14.8) H Platelet Count 192 K/UL (150-450) Mean Platelet Volume 5.8 FL (6.5-10.1) L Neutrophils (%) (Auto) 80.1 % (45.0-75.0) H Lymphocytes (%) (Auto) 9.9 % (20.0-45.0) L Monocytes (%) (Auto) 7.3 % (1.0-10.0) Eosinophils (%) (Auto) 1.7 % (0.0-3.0) Basophils (%) (Auto) 0.9 % (0.0-2.0) Sodium Level 139 mEQ/L (135-145) Potassium Level 3.4 mEQ/L (3.4-4.9) Chloride Level 97 mEQ/L (98-107) L Carbon Dioxide Level 27 mEQ/L (20-30) Anion Gap 15 (5-15) Blood Urea Nitrogen 16 mg/dL (7-23) Creatinine 1.1 mg/dL (0.5-0.9) H Estimat Glomerular Filtration Rate 50.7 mL/min (>60) Glucose Level 117 mg/dL (74-106) H Calcium Level 8.2 mg/dL (8.6-10.2) L Height (Feet): 5 Weight (Pounds): 123 General Appearance: no apparent distress, alert Cardiovascular: normal rate Respiratory/Chest: no respiratory distress Abdominal Exam: distended, ascites Extremities: normal range of motion Greta David N.P. Jun 25, 2016 12:27
--- NOTE | 2016-06-25 13:37 | Cardiology Report ---
APPROVED REPORT EKG Measurement Heart [id number] Normal sinus rhythm Possible Left atrial enlargement Left axis deviation Low voltage QRS Septal infarct, age undetermined Abnormal ECG
[2016-06-25] MEDS ORDERED: DuoNeb 0.5-3(2.5)mg/3ml neb HHN SCH (15:00)
--- NOTE | 2016-06-25 15:01 | Cardiac Electrophysiology PN ---
Assessment/Plan Assessment/Plan 1. Congestive heart failure with EF 20-25%. Continue Lasix 40 mg daily, Aldactone 25 mg daily, lisinopril 10 and Coreg 3.125 bid.Not stable for stress test or cardiac cath in view of her psychosis 2. Hypertension. Continue current heart failure medications. 3. Hepatic failure and ascites.S/P 1.3 liter Paracentesis today 4. Hyponatremia secondary to volume overload secondary to CHF and cirrhosis. 5. Agitation and noncompliance. JESSE RN Subjective Subjective Just had 1.3 liter of paracentesis today.DC planning later today. Objective Last 24 Hour Vital Signs Date Time Temp Pulse Resp B/P Pulse Ox O2 Delivery O2 Flow Rate FiO2 06/25/16 11:43 98.0 87 20 125/85 95 Room Air 06/25/16 11:34 94 20 100 Room Air 06/25/16 11:23 96 20 98 Room Air 06/25/16 07:53 98.4 85 20 118/81 93 Room Air 06/25/16 07:34 93 20 100 Room Air 06/25/16 07:25 91 20 98 Room Air 06/25/16 04:00 98.9 86 20 110/82 95 Room Air 06/25/16 03:07 89 18 100 Room Air 21 06/25/16 03:05 90 18 95 Room Air 21 06/25/16 00:00 97.4 87 20 127/91 97 Room Air 06/24/16 23:00 78 18 96 Room Air 21 06/24/16 23:00 80 18 100 Room Air 21 06/24/16 21:00 95 123/101 06/24/16 20:00 97.3 95 20 123/101 95 Room Air 06/24/16 19:16 85 18 96 Room Air 21 06/24/16 19:16 82 18 100 Room Air 21 06/24/16 16:01 98.6 101 20 143/90 95 Room Air Intake and Output 06/24/16 06/25/16 19:00 07:00 Intake Total 600 ml Balance 600 ml Intake Oral 600 ml # Voids 4 5 # Bowel Movements 2 Laboratory Tests Test 06/25/16 10:30 White Blood Count 6.8 K/UL (4.8-10.8) Red Blood Count 4.40 M/UL (4.20-5.40) Hemoglobin 12.3 G/DL (12.0-16.0) Hematocrit 40.2 % (37.0-47.0) Mean Corpuscular Volume 91 FL (80-99) Mean Corpuscular Hemoglobin 28.0 PG (27.0-31.0) Mean Corpuscular Hemoglobin Concent 30.7 G/DL (32.0-36.0) L Red Cell Distribution Width 18.6 % (11.6-14.8) H Platelet Count 192 K/UL (150-450) Mean Platelet Volume 5.8 FL (6.5-10.1) L Neutrophils (%) (Auto) 80.1 % (45.0-75.0) H Lymphocytes (%) (Auto) 9.9 % (20.0-45.0) L Monocytes (%) (Auto) 7.3 % (1.0-10.0) Eosinophils (%) (Auto) 1.7 % (0.0-3.0) Basophils (%) (Auto) 0.9 % (0.0-2.0) Sodium Level 139 mEQ/L (135-145) Potassium Level 3.4 mEQ/L (3.4-4.9) Chloride Level 97 mEQ/L (98-107) L Carbon Dioxide Level 27 mEQ/L (20-30) Anion Gap 15 (5-15) Blood Urea Nitrogen 16 mg/dL (7-23) Creatinine 1.1 mg/dL (0.5-0.9) H Estimat Glomerular Filtration Rate 50.7 mL/min (>60) Glucose Level 117 mg/dL (74-106) H Calcium Level 8.2 mg/dL (8.6-10.2) L Objective HEAD AND NECK: Mild JVD. LUNGS: Decreased breath sounds and wheezing. CARDIOVASCULAR: Regular S1 and S2 with no gallop or murmur. ABDOMEN: Soft with ascites. EXTREMITIES: A 1+ pitting edema. GARETH KAPOOR Jun 25, 2016 15:01
--- NOTE | 2016-06-25 15:29 | Infectious Diseases Prog Note ---
Assessment/Plan Problems: (1) MRSA colonization Assessment & Plan: will start Bactroban for 5 days intranasally (2) Ascites Assessment & Plan: S/P paracentesis, follow up with GI, continue diuresis (3) End stage liver disease Assessment & Plan: recommend supportive care, follow up with GI Subjective Constitutional: Reports: no symptoms HEENT: Reports: no symptoms Respiratory: Reports: no symptoms Gastrointestinal/Abdominal: Reports: bloating, constipation Genitourinary: Reports: no symptoms Neurologic: Reports: no symptoms Psychiatric: Reports: no symptoms Skin: Reports: no symptoms Allergies: Coded Allergies: No Known Allergies (Unverified , 01/02/16) Objective Vital Signs Last 24 Hour Vital Signs Date Time Temp Pulse Resp B/P Pulse Ox O2 Delivery O2 Flow Rate FiO2 06/25/16 11:43 98.0 87 20 125/85 95 Room Air 06/25/16 11:34 94 20 100 Room Air 06/25/16 11:23 96 20 98 Room Air 06/25/16 07:53 98.4 85 20 118/81 93 Room Air 06/25/16 07:34 93 20 100 Room Air 06/25/16 07:25 91 20 98 Room Air 06/25/16 04:00 98.9 86 20 110/82 95 Room Air 06/25/16 03:07 89 18 100 Room Air 06/25/16 03:05 90 18 95 Room Air 06/25/16 00:00 97.4 87 20 127/91 97 Room Air 06/24/16 23:00 78 18 96 Room Air 06/24/16 23:00 80 18 100 Room Air 06/24/16 21:00 95 123/101 06/24/16 20:00 97.3 95 20 123/101 95 Room Air 06/24/16 19:16 85 18 96 Room Air 21 06/24/16 19:16 82 18 100 Room Air 06/24/16 16:01 98.6 101 20 143/90 95 Room Air Height (Feet): 5 Weight (Pounds): 123 General Appearance: WD/WN, no acute distress HEENT: normocephalic, atraumatic, anicteric, mucous membranes moist Respiratory/Chest: chest wall non-tender, lungs clear, normal breath sounds, no respiratory distress, no accessory muscle use Cardiovascular: normal peripheral pulses, normal rate, regular rhythm, no gallop/murmur, no JVD Abdomen: normal bowel sounds, soft, non tender, no organomegaly, no mass, no scars, absent bowel sounds, distended Extremities: no cyanosis, no clubbing Skin: no rash, no lesions Laboratory Tests Test 06/25/16 10:30 White Blood Count 6.8 K/UL (4.8-10.8) Red Blood Count 4.40 M/UL (4.20-5.40) Hemoglobin 12.3 G/DL (12.0-16.0) Hematocrit 40.2 % (37.0-47.0) Mean Corpuscular Volume 91 FL (80-99) Mean Corpuscular Hemoglobin 28.0 PG (27.0-31.0) Mean Corpuscular Hemoglobin Concent 30.7 G/DL (32.0-36.0) L Red Cell Distribution Width 18.6 % (11.6-14.8) H Platelet Count 192 K/UL (150-450) Mean Platelet Volume 5.8 FL (6.5-10.1) L Neutrophils (%) (Auto) 80.1 % (45.0-75.0) H Lymphocytes (%) (Auto) 9.9 % (20.0-45.0) L Monocytes (%) (Auto) 7.3 % (1.0-10.0) Eosinophils (%) (Auto) 1.7 % (0.0-3.0) Basophils (%) (Auto) 0.9 % (0.0-2.0) Sodium Level 139 mEQ/L (135-145) Potassium Level 3.4 mEQ/L (3.4-4.9) Chloride Level 97 mEQ/L (98-107) L Carbon Dioxide Level 27 mEQ/L (20-30) Anion Gap 15 (5-15) Blood Urea Nitrogen 16 mg/dL (7-23) Creatinine 1.1 mg/dL (0.5-0.9) H Estimat Glomerular Filtration Rate 50.7 mL/min (>60) Glucose Level 117 mg/dL (74-106) H Calcium Level 8.2 mg/dL (8.6-10.2) L Current Medications Medications (Trade) Dose Ordered Sig/Fela Route PRN Reason Start Time Stop Time Status Last Admin Dose Admin Acetaminophen (Tylenol) 650 mg Q4H PRN ORAL fever 06/20/16 18:00 07/20/16 17:59 Al Hydroxide/Mg Hydroxide (Mylanta II) 30 ml Q6H PRN ORAL dyspepsia 06/20/16 18:00 07/20/16 17:59 Albuterol/ Ipratropium (DuoNeb 0.5-3(2.5)mg/3ml) 3 ml Q4HRT HHN 06/25/16 15:00 06/30/16 23:59 Carvedilol (Coreg) 3.125 mg EVERY 12 HOURS ORAL 06/21/16 21:00 07/21/16 20:59 06/24/16 10:11 Dextrose (Dextrose 50%) STAT PRN IV Hypoglycemia 06/20/16 18:00 07/20/16 17:59 Diphenhydramine HCl (Benadryl) 25 mg Q6H PRN ORAL Itching/Pruritis 06/20/16 18:00 07/20/16 17:59 Furosemide (Lasix) 40 mg DAILY ORAL 06/21/16 09:00 07/21/16 08:59 06/24/16 10:11 Guaifenesin (Robitussin) 100 mg Q4H PRN ORAL For Cough 06/21/16 17:00 07/21/16 16:59 06/24/16 02:57 Lactulose (Cephulac) 20 gm EVERY 8 HOURS ORAL 06/20/16 22:00 07/20/16 21:59 06/25/16 05:50 Levothyroxine Sodium (Synthroid) 50 mcg DAILY@0630 ORAL 06/21/16 06:30 07/21/16 06:29 06/25/16 05:50 Lisinopril (Zestril) 10 mg DAILY ORAL 06/22/16 09:00 07/22/16 08:59 06/24/16 10:11 Lorazepam (Ativan 2mg/ml 1ml) 2 mg ONCE PRN IV ONCE PRIOR TO THORACENTESIS 06/25/16 06:00 06/25/16 23:59 06/25/16 13:53 Lorazepam (Ativan 2mg/ml 1ml) 2 mg Q6H PRN IM For Anxiety 06/22/16 09:30 06/29/16 09:29 06/24/16 14:35 Morphine Sulfate (Morphine Sulfate) 2 mg EVERY 4 HOURS PRN IVP Severe Pain (Pain Scale 7-10) 06/20/16 18:00 06/27/16 17:59 Nitroglycerin (Ntg) 0.4 mg Q5M X 3 DOSES PRN SL Prn Chest Pain 06/20/16 18:00 07/20/16 17:59 Ondansetron HCl (Zofran) 4 mg Q6H PRN IVP Nausea & Vomiting 06/20/16 18:00 07/20/16 17:59 Polyethylene Glycol (Miralax) 17 gm HSPRN PRN ORAL Constipation 06/20/16 21:00 07/20/16 20:59 Quetiapine Fumarate (SEROquel) 50 mg THREE TIMES A DAY ORAL 06/20/16 18:00 07/20/16 17:59 06/24/16 13:43 Spironolactone (Aldactone) 25 mg DAILY ORAL 06/21/16 09:00 07/21/16 08:59 06/24/16 10:11 Temazepam (Restoril) 15 mg HSPRN PRN ORAL Insomnia 06/20/16 21:00 06/27/16 20:59 06/22/16 23:08 Ivone Paez M.D. Jun 25, 2016 15:29
[2016-06-25] MEDS ORDERED: SEROQUEL50 MG ORAL (16:02)
[2016-06-25] MEDS ORDERED: BACTROBAN CR1 APPLIC TOPIC (16:03)
[2016-06-25] MEDS ORDERED: COREG3.125 MG ORAL (16:04)
[2016-06-25] MEDS ORDERED: SYNTHROID50 MCG ORAL (16:05)
[2016-06-25] MEDS ORDERED: LACTULOSE20 GM/301 ORAL (16:05)
[2016-06-25] MEDS ORDERED: SPIRONOLACTONE25 MG ORAL (16:06)
[2016-06-25] MEDS ORDERED: FUROSEMIDE40 MG ORAL (16:06)
[2016-06-25] MEDS ORDERED: ZESTRIL10 M1 ORAL (16:06)
[2016-06-25] MEDS ORDERED: ATIVAN2 MG/1 ML IV (16:07)
[2016-06-25] MEDS ORDERED: BENADRYL25 M3 PO (16:08)
[2016-06-25] MEDS ORDERED: MIRALAX17 G2 ORAL (16:09)
[2016-06-25 16:10] VITALS: BP 127/76
[2016-06-25] MEDS ORDERED: RESTORIL15 MG ORAL (16:10)
[2016-06-25] MEDS ORDERED: GUAIFENESIN-CO118 M1 ORAL (16:12)
[2016-06-25] MEDS ORDERED: ROBITUSSIN COU118 M1 PO (16:12)
[2016-06-25] MEDS ORDERED: NITROGLYCERIN0.4 MG SL (16:15)
[2016-06-25] MEDS ORDERED: TYLENOL650 MG/20. ORAL (16:17)
--- NOTE | 2016-06-25 16:35 | Diagnostic Imaging Report ---
Indications: Ascites Procedure: Informed consent obtained. Ultrasound used to localize optimal puncture site. Sterile prepping and draping over the optimum site. Local anesthesia with 1% lidocaine. Under real-time ultrasound guidance, puncture of the peritoneal space performed using paracentesis needle. Digital image was saved and archived. Stylet removed. Catheter placed to vacuum bottle suction. Fluid was aspirated. Patient tolerated procedure well, without immediate complication. Findings: Followup sonography demonstrates complete resolution of peritoneal fluid Impression: Successful ultrasound-guided paracentesis, yielding 1.3 liters of fluid
[2016-06-25 18:42] LABS: APPEARANCE, BODY FLUID CLOUDY; BD FL SOURCE PARACENTESIS; BD FL VOLUME 24 mL; BODY FLUID NUCLEATED CELLS 160 /CUMM; BODY FLUID RBC 13400 /CUMM; MONONUCLEAR WBC 78 %; POLYMORPHONUCLEAR WBC 9 %
--- NOTE | 2016-06-25 20:06 | Nephrology Progress Note ---
Assessment/Plan Problem List: (1) CHF (congestive heart failure) (2) End stage liver disease (3) CKD (chronic kidney disease) (4) HTN (hypertension) Plan S/P 1.3 liter Paracentesis Monitor lytes, correct as needed Continue neb treatment Cardio f/u Abx per ID DC plan Subjective ROS Limited/Unobtainable: Yes Constitutional: Denies: chills, diaphoresis, fever, malaise, no symptoms, other , weakness HEENT: Denies: blurred vision, double vision, ear discharge, ear pain, eye pain , mouth pain, mouth swelling, no symptoms, nose congestion, nose pain, other, tearing, throat pain, throat swelling Genitourinary: Denies: burning, discharge, flank pain, frequency, hematuria, incontinence, no symptoms, other, pain, urgency Neurologic/Psychiatric: Denies: anxiety, depressed, emotional problems, headache, no symptoms, numbness, other, paresthesia, pre-existing deficit, seizure, tingling, tremors, weakness Subjective s/p paracentesis Objective Objective Last 24 Hour Vital Signs Date Time Temp Pulse Resp B/P Pulse Ox O2 Delivery O2 Flow Rate FiO2 06/25/16 16:10 98.2 98 20 127/76 95 Room Air 06/25/16 16:03 97 18 100 Room Air 06/25/16 15:57 93 18 98 Room Air 06/25/16 11:43 98.0 87 20 125/85 95 Room Air 06/25/16 11:34 94 20 100 Room Air 06/25/16 11:23 96 20 98 Room Air 06/25/16 07:53 98.4 85 20 118/81 93 Room Air 06/25/16 07:34 93 20 100 Room Air 06/25/16 07:25 91 20 98 Room Air 06/25/16 04:00 98.9 86 20 110/82 95 Room Air 06/25/16 03:07 89 18 100 Room Air 06/25/16 03:05 90 18 95 Room Air 06/25/16 00:00 97.4 87 20 127/91 97 Room Air 06/24/16 23:00 78 18 96 Room Air 06/24/16 23:00 80 18 100 Room Air 06/24/16 21:00 95 123/101 Intake and Output 06/24/16 06/25/16 19:00 07:00 Intake Total 600 ml Balance 600 ml Intake Oral 600 ml # Voids 4 5 # Bowel Movements 2 Laboratory Tests 06/25/16 10:30: White Blood Count 6.8, Red Blood Count 4.40, Hemoglobin 12.3, Hematocrit 40.2, Mean Corpuscular Volume 91, Mean Corpuscular Hemoglobin 28.0, Mean Corpuscular Hemoglobin Concent 30.7L, Red Cell Distribution Width 18.6H, Platelet Count 192 , Mean Platelet Volume 5.8L, Neutrophils (%) (Auto) 80.1H, Lymphocytes (%) (Auto ) 9.9L, Monocytes (%) (Auto) 7.3, Eosinophils (%) (Auto) 1.7, Basophils (%) ( Auto) 0.9, Sodium Level 139, Potassium Level 3.4, Chloride Level 97L, Carbon Dioxide Level 27, Anion Gap 15, Blood Urea Nitrogen 16, Creatinine 1.1H, Estimat Glomerular Filtration Rate 50.7, Glucose Level 117H, Calcium Level 8.2L 06/25/16 14:45: Body Fluid Source Paracentesis, Body Fluid Volume 24, Body Fluid Appearance Cloudy, Body [place] [address], Body Fluid Total Nucleated Cells 160, Body Fluid Polynuclear WBCs (%) 9, Body Fluid Mononuclear WBCs (%) 78, Body Fluid Mesothelial Cells (%) 13, Body Fluid Albumin [Pending] Height (Feet): 5 Weight (Pounds): 123 General Appearance: no apparent distress EENT: normal ENT inspection Neck: normal alignment Cardiovascular: normal rate Respiratory/Chest: decreased breath sounds Abdomen: decreased bowel sounds Extremities: non-tender Neurologic: alert, responsive, normal mood/affect LEENA ASH Jun 25, 2016 20:06
--- NOTE | 2016-06-28 12:30 | Discharge Summary ---
Discharge Summary Hospital Course Date of Admission Jun 20, 2016 at 11:08 Date of Discharge Jun 25, 2016 at 16:44 Admitting Diagnosis symptomatic ascites, dyspnea HPI Rosalie Morris is a 60 year old female who was admitted on Jun 20, 2016 at 11:08 for Symptomatic Ascites,Dyspnea Hospital Course dc summary #[id number] Discharge Medications Continued Medications: Acetaminophen* (Acetaminophen*) 160 Mg/5 Ml Solution 650 MG ORAL Q6H PRN for Mild Pain/Temp > 100.5, ML Carvedilol (Coreg) 3.125 Mg Tablet 3.125 MG ORAL EVERY 12 HOURS, TAB Diphenhydramine HCl (Benadryl) 25 Mg Capsule 25 MG PO EVERY 6 HOURS for Itching, CAP Furosemide* (Lasix*) 40 Mg Tablet 40 MG ORAL DAILY, TAB Guaifenesin/Codeine Phos* (Robitussin Ac*) 118 Ml Liquid 1 TSP ORAL Q4H PRN for For Cough, #118 ML 0 Refills Lactulose (Lactulose*) 20 Gm/30 Ml Solution 30 ML ORAL EVERY 8 HOURS, ML 0 Refills Levothyroxine Sodium* (Levothyroxine Sodium*) 50 Mcg Tablet 50 MCG ORAL DAILY, TAB Take in the morning on an empty stomach, at least 30 minutes before food. Lisinopril* (Zestril*) 10 Mg Tablet 10 MG ORAL DAILY, TAB Mupirocin Calcium (Bactroban) 15 Gm Cream..g. 15 APPLIC TOPIC THREE TIMES A DAY for 7 Days, GM Nitroglycerin (Nitroglycerin) 0.4 Mg Tab.subl 0.4 MG SL PRN for Prn Chest Pain, TAB Polyethylene Glycol 3350* (Miralax*) 17 Gm Powd.pack 17 GM ORAL DAILY PRN for Constipation, PACKET Quetiapine Fumarate* (Seroquel*) 25 Mg Tablet 50 MG ORAL THREE TIMES A DAY, TAB Spironolactone* (Aldactone*) 25 Mg Tablet 25 MG ORAL DAILY, TAB Temazepam* (Restoril*) 15 Mg Capsule 15 MG ORAL BEDTIME for Insomnia, CAP Discontinued Medications: Acetaminophen (Acetaminophen) 650 Mg/20.3 Ml Solution 650 MG ORAL Q4HR for For Pain, ML 0 Refills Aspirin* (Aspirin*) 81 Mg Tab.chew 81 MG ORAL DAILY, TAB Atorvastatin Calcium* (Atorvastatin Calcium*) 20 Mg Tablet 20 MG ORAL BEDTIME, TAB Bisacodyl (Dulcolax) 10 Mg Supp.rect 10 MG RC, SUPP Calcium Carbonate/Vitamin D3 (Calcium 500 + Vit D 200 Caplet) 1 Each Tablet 1 EACH PO DAILY, TAB Carvedilol* (Carvedilol*) 6.25 Mg Tablet 6.25 MG ORAL EVERY 12 HOURS, TAB Docusate Sodium* (Colace*) 100 Mg Capsule 100 MG ORAL DAILY, CAP Donepezil Hcl* (Donepezil Hcl*) 10 Mg Tab.rapdis 10 MG ORAL DAILY, TAB Furosemide* (Lasix*) 40 Mg Tablet 40 MG ORAL DAILY, TAB Guaifenesin/D-Methorphan Hb/Pe (Robitussin Cough-Cold Cf Liq) 118 Ml Liquid 118 ML PO, ML Heparin Sod (Porcine) (Heparin Sodium*) 5 000/1 Ml Vial 5000 UNITS SUBQ BID, VIAL Lactulose (Lactulose*) 20 Gm/30 Ml Solution 30 ML ORAL EVERY 8 HOURS, ML 0 Refills Levothyroxine Sodium (Synthroid) 50 Mcg Tablet 50 MCG ORAL DAILY, TAB Take in the morning on an empty stomach, at least 30 minutes beforefood. Lisinopril (Lisinopril*) 5 Mg Tablet 10 MG ORAL DAILY, TAB Lorazepam* (Ativan*) 2 Mg/1 Ml Vial 2 MG IV Q6H for For Anxiety, VIAL Memantine Hcl* (Namenda*) 10 Mg Tablet 10 MG ORAL DAILY, TAB Quetiapine Fumarate (Seroquel) 50 Mg Tablet 50 MG ORAL THREE TIMES A DAY, #15 TAB 0 Refills Sennosides/Docusate Sodium (Senna Laxative Tablet) 1 Each Tablet 2 EACH PO BEDTIME, TAB Spironolactone* (Aldactone*) 25 Mg Tablet 25 MG ORAL DAILY, TAB Thiamine Hcl* (Vitamin B-1*) 100 Mg Tablet 100 MG ORAL DAILY, #30 TAB 0 Refills Discharge Discharge Disposition Patient was discharged to SNF/Subacute Facility(03) Discharge Diagnoses: Cristian ([facility])Janett NP June 28, 2016 12:30
[2016-06-28 12:56] LABS: COMMENT,BODY FLUID PATHOLOGIST COMMENT
--- NOTE | 2016-06-29 05:08 | Discharge Summary 2 SIG ---
DATE OF ADMISSION: 06/20/2016 DATE OF DISCHARGE: 06/25/2016 REASON FOR ADMISSION: 60-year-old female, resident of a senior care facility, presented with shortness of breath and increased abdominal distention. The patient had a history of liver disease and ascites. Workup in the emergency room revealed hyponatremia. Sodium - 128. INR - 1.2. Chest x-ray revealed bilateral congestive changes, persistent versus recurrent , since previous exam with interval mild increase in bilateral pleural effusion. No leukocytosis. Stable hemoglobin and hematocrit. The patient was admitted for further management. ADMITTING DIAGNOSES: 1. End-stage liver disease. 2. Ascites. 3. Dyspnea. 4. Chronic kidney disease. 5. Elevated carcinoembryonic antigen. 6. History of congestive heart failure. 7. Hypertension. 8. Dementia. HOSPITAL STAY: The patient was admitted to Med/Surg floor. Supplemental oxygen and pulmonary toilet provided as needed. Venous duplex bilateral lower extremities was negative for acute DVT. Infectious Disease doctor seen the patient . There was no evidence of acute infection. Infectious Disease doctor cleared the patient to proceed with paracentesis. The patient undergone paracentesis, which yielded 1.3 L of fluid. Alpha-fetoprotein was within normal limits. Ammonia was within normal limits. Lactulose and rifaximin were continued, as per GI recommendation, who closely followed the patient. Hepatitis panel was negative. Echocardiogram revealed ejection fraction of 20% to 25%, right ventricular systolic pressure of 40 consistent with moderate pulmonary hypertension. Cardio followed. Medical management of congestive heart failure with diuretic (Lasix and Aldactone,) beta-mel and KIARA inhibitor. Blood pressure was managed with current regimen and was stable. Per community support associate, the patient was not stable for stress test due to psychosis. Renal parameters were closely monitored. Sodium up to 139. Sodium was likely secondary to volume overload from congestive heart failure and cirrhosis as per community support associate.[employer] Administrator followed as well. Recommended to avoid nephrotoxic. Sitter at the bedside for patient safety during the hospital stay. Anemia workup revealed evidence of iron-deficiency anemia. The patient was on Venofer. Seroquel was continued. The patient was stable for discharge back to senior care facility. DISCHARGE DIAGNOSES: 1. End-stage liver disease. 2. Ascites. 3. Dyspnea. 4. Systolic heart failure. 5. Cardiomyopathy. 6. Hypertension. 7. Moderate pulmonary hypertension. 8. Anasarca. 9. Chronic kidney disease. 10. Elevated carcinoembryonic antigen. 11. Dementia. 12. Iron deficiency anemia. 13. Noncompliance. 14. Hyponatremia DISCHARGE MEDICATIONS: See medication reconciliation list. DISCHARGE INSTRUCTIONS: The patient to follow up with medical doctor at the facility. The patient was discharged to senior care facility. Jac Garcia D.O. I have been assigned to dictate discharge summary on this account and I was not involved in the patient's management. Janett PatelNewyork-Presbyterian Hospitalalirio N.PDarwin DR: LUCILLE JOB#: [id number] CC: ADIEL
== END 2016-06-25 16:44 | DRG 279 ==
LOC: EDBD 10:44 → EDBEDREQ 10:56 → EMR 11:05 → 4W 11:08 → UNDOADMIN 11:08 → EDBEDREQSVC 12:48 → EDBEDREQ 13:28 → 4W 23:39
PROC: 0W9G3ZZ Drainage of Peritoneal Cavity, Percutaneous Approach (ICD-10-PCS; principal; 2016-06-25)
DX: K72.90 Hepatic failure, unspecified without coma (principal); I42.9 Cardiomyopathy, unspecified; F03.90 Unspecified dementia, unspecified severity, without behavioral disturbance, psychotic disturbance, mood disturbance, and anxiety; R18.8 Other ascites; E87.1 Hypo-osmolality and hyponatremia; I50.22 Chronic systolic (congestive) heart failure; N18.9 Chronic kidney disease, unspecified; K74.60 Unspecified cirrhosis of liver; D64.9 Anemia, unspecified; I12.9 Hypertensive chronic kidney disease with stage 1 through stage 4 chronic kidney disease, or unspecified chronic kidney disease; R06.00 Dyspnea, unspecified; D50.9 Iron deficiency anemia, unspecified; Z91.19 Patient's noncompliance with other medical treatment and regimen; R97.0 Elevated carcinoembryonic antigen [CEA]; E03.9 Hypothyroidism, unspecified; Z22.322 Carrier or suspected carrier of Methicillin resistant Staphylococcus aureus
CPT/HCPCS: 36415; 71010; 76700; 76942; 80048; 80053; 82105; 82140; 82248; 82550; 82553; 83540; 83550; 83690; 84484; 85025; 85610; 85730; 86705; 86709; 86803; 87081; 87340; 89051; 93005; 93306; 93970; 94640; 94664; J7620; J8499